=== PATIENT | male | born 1975 ===

== ENCOUNTER 2023-04-16 09:30 | Emergency (ER) | payer MEDICARE, MEDICAID, SELFPAY ==
[2023-04-16] VITALS (10 sets, daily range): BP systolic 112–144; BP diastolic 75–96; PULSE 67–98; RESP 12–19; TEMP 36.4; O2SAT 92–100; BMI 32.8
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
--- NOTE | 2023-04-16 10:08 | ED.GENADULT ---
HPI - General Adult General Chief complaint: Trauma Stated complaint: Jumped off balcony,can't walk pain from waist down Time Seen by Provider: 04/16/23 09:49 Source: patient Mode of arrival: Ambulatory History of Present Illness HPI narrative: 47-year-old gentleman who walks into triage complaining of back pain. Once in the department he is reluctant to provide any details. As best I can tell, he jumped or fell off a ladder that was approximately 12 ft. He reports that this happened sometime last night. He states he landed on his feet and is complaining of right foot left knee left hip and neck pain. He states he did not hit his head. He notes that he did fall forward caught himself with a his hands and is complaining of neck pain. He notes that he did have a broken neck recently. He has no chest pain or abdominal pain. No upper extremity complaints. He is minimally interactive, almost falling asleep during our discussion but denies any medications recreational are otherwise. He declines IV and offers no additional history. When asked directly if this was a suicide attempt he will not answer. He will not answer any other questions regarding circumstances of the incident or medical history Related Data Allergies Allergy/AdvReac Type Severity Reaction Status Date / Time No Known Drug Allergies Allergy Verified 04/16/23 09:57 Review of Systems Review of Systems Narrative: Unobtainable due to patient being unwilling to answer questions Patient History Medical History (Updated 04/16/23 @ 14:43 by Catia Yancey MD) Schizoaffective disorder Opioid use disorder Cervical stenosis of spine Cervical vertebral fracture Hyperlipidemia Hypertension Bipolar 1 disorder Coronary artery disease Social History Smoking Status: Current every day smoker Smoking Status: Current every day smoker tobacco type: cigarettes alcohol intake frequency: 0-2 drinks per day Substance Use Type: marijuana Exam Initial Vital Signs Initial Vital Signs: Vital Signs Temperature 97.5 F L 04/16/23 09:35 Pulse Rate 87 04/16/23 09:35 Respiratory Rate 19 04/16/23 09:35 Blood Pressure 127/75 04/16/23 09:35 Pulse Oximetry 97 04/16/23 09:35 Oxygen Delivery Method Room Air 04/16/23 09:35 General: Overweight, chronically ill-appearing gentleman lying curled on his right side and minimally interactive with exam HEENT: Moist mucous membranes, 2-3 mm minimally reactive pupils, unrestricted extraocular movement Neck: Tender from occipital input to T6 bilateral Respiratory: Lungs are clear to auscultation, no wheezing no rales no rhonchi. Full and symmetrical air movement. No bruising or abrasions. No tenderness with rib manipulation Cardiac: Regular rate and rhythm no murmurs no bruits Abdomen: Soft, nontender, good bowel tones, no flank pain Skin: Warm and dry, no obvious abrasions or contusions Neurologic: He is moving all extremities Extremities: Right lateral ankle is slightly swollen and tender over the calcaneus, left knee with effusion tender and unable to flex beyond 160?, complaints of left hip pain yet passive internal external rotation of the hip are unremarkable. Pelvis and spine: Some minor tenderness with flexion around the left iliac crest. No tenderness along thoracic vertebrae or lumbar vertebra Psych: Uncooperative, flat affect, falling asleep during exam Course Orders Ordered: ED Orders 04/16/23 10:17 CT cervical spine wo con Stat XR ankle RT min 3V Stat XR hip w pel if done LT 2V Stat XR knee LT 3V Stat XR lumbar spine 2-3V Stat 04/16/23 11:23 Consult to [employer] - [employer] Stat 04/16/23 11:32 Urinalysis and Microscopic Stat Urine Drug Screen, Rapid Stat 04/16/23 11:33 Consult to [facility] [place] - [employer] Urgent 04/16/23 11:58 Acetaminophen Stat Complete Blood Count AUTO DIFF Stat Comprehensive Metabolic Panel Stat Ethanol (ETOH) Stat Salicylate Stat TSH w/ Reflex to FT4 Stat Vital Signs Vital signs: Vital Signs - 8 hr 04/16/23 09:35 04/16/23 09:38 04/16/23 09:38 Temperature 97.5 F L Pulse Rate 87 87 Respiratory Rate 19 Blood Pressure 127/75 127/75 Pulse Oximetry 97 97 Oxygen Delivery Method Room Air 04/16/23 10:00 04/16/23 10:00 04/16/23 10:43 Temperature Pulse Rate 82 67 Respiratory Rate Blood Pressure 113/76 Pulse Oximetry 96 98 Oxygen Delivery Method 04/16/23 10:43 04/16/23 11:00 04/16/23 11:00 Temperature Pulse Rate 70 Respiratory Rate Blood Pressure 125/89 119/80 Pulse Oximetry 92 Oxygen Delivery Method 04/16/23 11:30 04/16/23 11:31 04/16/23 11:31 Temperature Pulse Rate 93 H 77 Respiratory Rate Blood Pressure 144/96 H Pulse Oximetry 100 99 Oxygen Delivery Method 04/16/23 13:19 04/16/23 13:20 04/16/23 13:20 Temperature Pulse Rate 75 79 Respiratory Rate Blood Pressure 112/79 Pulse Oximetry 97 98 Oxygen Delivery Method 04/16/23 13:21 Temperature Pulse Rate 98 H Respiratory Rate 12 Blood Pressure 112/79 Pulse Oximetry 98 Oxygen Delivery Method Room Air Medical Decision Making Lab Data 04/16/23 11:58 04/16/23 11:58 Labs: Lab Results 04/16/23 Range/Units 11:58 WBC 13.0 H (4.5-11.0) X10^3/uL RBC 4.56 (4.5-5.9) X10^6/uL Hgb 14.0 (13.5-17.5) g/dL Hct 41.4 (41-53) % MCV 90.8 (80-100) fL MCH 30.8 (26-34) PG MCHC 33.9 (30-36) % RDW 13.9 (11.6-14.8) % Plt Count 277 (150-400) X10^3/uL Neut % (Auto) 64.5 (50-75) % Lymph % (Auto) 27.3 (25-40) % [place] % (Auto) 5.9 (3-14) % Eos % (Auto) 1.4 L (2-4) % Baso % (Auto) 0.9 (0-2) % Neut # (Auto) 8400 H (2080-0652) /uL Lymph # (Auto) 3500 (0046-4496) /uL [place] # (Auto) 800 (0-900) /uL Eos # (Auto) 200 (0-450) /uL Baso # (Auto) 100 (0-100) /uL Sodium 137 (137-145) mmol/L Potassium 4.1 (3.4-5.1) mmol/L Chloride 106 (98-107) mmol/L Carbon Dioxide 28 (22-32) mmol/L BUN 15 (9-20) mg/dL Creatinine 0.84 (0.66-1.25) mg/dL Estimated GFR > 60 (>60) mL/min BUN/Creatinine Ratio 17.9 (6-22) Glucose 93 (70-100) mg/dL Calcium 8.8 (8.4-10.2) mg/dL Total Bilirubin 0.4 (0.2-1.3) mg/dL AST 23 (17-59) IU/L ALT 20 (<50) IU/L Alkaline Phosphatase 102 (38-126) U/L Total Protein 7.7 (6.3-8.2) g/dL Albumin 3.6 (3.5-5.0) g/dL Globulin 4.1 (1.7-4.1) g/dL Albumin/Globulin Ratio 0.9 L (1.0-2.8) TSH 0.50 (0.47-4.68) uIU/mL Salicylates < 1.0 (<20) mg/dL Acetaminophen < 10 (10-30) ug/mL Ethyl Alcohol < 10 ( - 10) mg/dL Imaging Data CT cervical spine: Radiologist's Impression: PROCEDURE: CT CERVICAL SPINE WO CON INDICATIONS: fall from 12 feet TECHNIQUE: Noncontrast 3 mm thick sections acquired from the skull base to the T4 level. Sagittal and coronal reformats were then constructed. For radiation dose reduction, the following was used: automated exposure control, adjustment of mA and/or kV according to patient size. COMPARISON: [facility], CT, CT CERVICAL SPINE WITHOUT CONTRAST, 01/16/2023, 16:54. FINDINGS: Image quality: Excellent. Bones: Present on the previous study was a vertical fracture of the C4 vertebral body in the midline within associated right lamina fracture at that time period since the previous study, there has been significant interval decrease in the C4 vertebral body height with development of a moderate superior endplate compression, as well as development bony sclerosis in the vertebral body. The superior endplate compression with lucency inferior to the superior endplate may have some acuity within it. The vertical fracture line is much less well appreciated consistent with progress in healing. No other vertebral body fractures are identified. There is diffuse cervical spondylitic change. There is multilevel canal stenosis. There is multilevel bony foraminal narrowing. Visualized superior ribs are intact. Soft tissues: Prevertebral soft tissues are normal in thickness. No paravertebral hematomas. No apical pneumothoraces. IMPRESSION: 1. There is been progress in healing of a previous vertical fracture in the C4 vertebral body. 2. Interval development of a moderate superior endplate compression of L4. This compression may have some degree of acuity. 3. No other acute fractures or dislocations. 4. Diffuse spondylitic change. Findings include multilevel canal stenosis and bony foraminal narrowing. Comment: Cervical spine MRI may be helpful to further evaluate the C4 vertebral body. Dictated by: Yong Mcallister M.D. on 04/16/2023 at 10:45 MDM Narrative Medical decision making narrative: CC: Fall off 12 ft ladder Complicating co-morbidities: Patient is noncooperative with any history. He is flat and unengaged to the point of being hostile, declines IV your lab work Data collected from: patient Social determinants of health that may influence the patients condition: Patient reports taking no medications despite medical records indicating multiple medications prescribed including psychiatric medications. Will not comment on his own medical history, social situation current living situation or suicidal intent Medical records reviewed: LIZA report is reviewed with inputs from [facility], [facility] and [facility] all since July of 2022. Notes from [facility] in July of 2022 are reviewed indicate significant psychiatric history including schizophrenia, bipolar disorder with coronary artery disease history of methamphetamine and opioid use, hypertension, hyperlipidemia Differential considered: Suicide attempt, exacerbation of C3 and C4 fractures, new cervical fractures, lumbar fracture, pelvic fracture, left hip fracture, left knee injury, right ankle injury. Exam documented above, pertinent findings include: Concern for acute opioid use as he is nodding off, significant neck pain that is unclear if it is new or old, swollen left knee, swollen right ankle Lab Test results independently reviewed as above. Pertinent findings: CBC is unremarkable Chemistries are unremarkable TSH is unremarkable Salicylate and acetaminophen are not detectable Ethyl alcohol is 0 Independently reviewed EKG: Imaging studies independently reviewed: CT scan of the cervical spine shows healing in prior C4 fracture, interval development of moderate superior endplate compression of C4 this may have some degree of acuity. -films will be forward to to [facility] for neurosurgical consultation as to acuity instability of fracture is noted. He was treated in December at [facility] with these original cervical fractures Lumbar spine x-ray shows no acute compression fractures or other abnormalities X-ray of the left knee does not show any acute bony injury X-ray of the right ankle shows no acute bony injury Hip x-ray does not show hip or pelvic fracture Consultations: Social work. Patient was recently seen at [facility] with mental health evaluation for suicidal ideation. Working on obtaining records. 1:40pm Dr Ladd neurosurg/spine training consultant. Acutely reviewing CT. Recommends spine surg follow up for spinal stenosis. [place] or [place] and wear 24/ as recommended in december 2022, which patient has chosen to not wear. 1:50pm still waiting for urine but medically cleared otherwise at this time 2pm: Social work talked with patient, staying with a friend, gets meds from the ER, denies SI and despite appearing currently significantly impaired secondary to opioid use he denies any recreational drug use. He declines any additional help, use resources from social work. Re-evaluations: 1140 pt agrees to blood and urine Discussion: Discharge Plan Departure Patient Disposition: Home Clinical Impression: Fall Qualifiers: Encounter type: initial encounter Qualified Code(s): W19.XXXA - Unspecified fall, initial encounter Fx cervical vertebra-closed Qualifiers: Encounter type: subsequent encounter Cervical vertebra fracture level: C4 Fracture alignment: nondisplaced Fracture healing: with routine healing Left knee sprain Qualifiers: Encounter type: initial encounter Involved ligament of knee: unspecified ligament Qualified Code(s): S83.92XA - Sprain of unspecified site of left knee, initial encounter Right ankle sprain Qualifiers: Encounter type: initial encounter Involved ligament of ankle: unspecified ligament Qualified Code(s): S93.401A - Sprain of unspecified ligament of right ankle, initial encounter Activity Restrictions/Additional Instructions: Thank you for coming in today We did a CT scan of your neck and I reviewed this study with the spine surgeon at [facility]. Your injury from December is healing but still not healed and his recommendation was to wear hard cervical collar. He also recommended outpatient follow-up with a spine surgeon and noted that you do have a degree of spinal stenosis in your neck that at some point may require surgery. It does not look like you did any new injury with your fall last night We have given you a replacement hard cervical collar for your neck fracture. The spine surgeon's recommendation was to wear it 24 hours a day except when showering. Your left knee is sprained which is why it is swollen. You did not break anything. It is okay to walk on your knee. Your right ankle is brain, also why it is swollen. It is not broken. It is okay to walk on your ankle You spoke with our social workers today and declined any additional help. If you find that you are getting worse or develop any new symptoms, please feel free to return to the emergency department for further evaluation. Referrals: Miscellaneous,Doctor, MD [Primary Care Provider] - Stand Alone Forms: Patient Portal/API
--- NOTE | 2023-04-16 10:17 | DI.RAD.S_ITS ---
PROCEDURE: XR ANKLE RT MIN 3V INDICATIONS: fall, pain TECHNIQUE: 3 views of the ankle were acquired. COMPARISON: None. FINDINGS: Bones: No fractures or dislocations. Ankle mortise is normally aligned. No suspicious bony lesions. Soft tissues: No tibiotalar joint effusion. Achilles tendon appears normal. Extensive plantar calcifications, as well as a plantar calcaneal spur. IMPRESSION: No evidence acute bony abnormality. The presence of extensive plantar calcifications raises the question of chronic changes related to plantar fasciitis. If clinical suspicion and/or symptoms persist, further assessment with repeat plain films, or advanced imaging (e.g., CT, MRI, or bone scan) may be helpful for further assessment. Dictated by: Yong Mcallister M.D. on 04/16/2023 at 11:41 Approved by: Yong Mcallister M.D. on 04/16/2023 at 11:44
--- NOTE | 2023-04-16 10:17 | DI.CT.S_ITS ---
PROCEDURE: CT CERVICAL SPINE WO CON INDICATIONS: fall from 12 feet TECHNIQUE: Noncontrast 3 mm thick sections acquired from the skull base to the T4 level. Sagittal and coronal reformats were then constructed. For radiation dose reduction, the following was used: automated exposure control, adjustment of mA and/or kV according to patient size. COMPARISON: [facility], CT, CT CERVICAL SPINE WITHOUT CONTRAST, 01/16/2023, 16:54. FINDINGS: Image quality: Excellent. Bones: Present on the previous study was a vertical fracture of the C4 vertebral body in the midline within associated right lamina fracture at that time period since the previous study, there has been significant interval decrease in the C4 vertebral body height with development of a moderate superior endplate compression, as well as development bony sclerosis in the vertebral body. The superior endplate compression with lucency inferior to the superior endplate may have some acuity within it. The vertical fracture line is much less well appreciated consistent with progress in healing. No other vertebral body fractures are identified. There is diffuse cervical spondylitic change. There is multilevel canal stenosis. There is multilevel bony foraminal narrowing. Visualized superior ribs are intact. Soft tissues: Prevertebral soft tissues are normal in thickness. No paravertebral hematomas. No apical pneumothoraces. IMPRESSION: 1. There is been progress in healing of a previous vertical fracture in the C4 vertebral body. 2. Interval development of a moderate superior endplate compression of L4. This compression may have some degree of acuity. 3. No other acute fractures or dislocations. 4. Diffuse spondylitic change. Findings include multilevel canal stenosis and bony foraminal narrowing. Comment: Cervical spine MRI may be helpful to further evaluate the C4 vertebral body. Dictated by: Yong Mcallister M.D. on 04/16/2023 at 10:45 Approved by: Yong Mcallister M.D. on 04/16/2023 at 10:53
--- NOTE | 2023-04-16 10:17 | DI.RAD.S_ITS ---
PROCEDURE: XR KNEE LT 3V INDICATIONS: fall, pain TECHNIQUE: 3 views of the knee were acquired. COMPARISON: None. FINDINGS: Bones: No fractures or dislocations. No suspicious bony lesions. Soft tissues: No joint effusion. No suspicious soft tissue calcifications. IMPRESSION: No evidence acute bony abnormality. If clinical suspicion and/or symptoms persist, further assessment with repeat plain films, or advanced imaging (e.g., CT, MRI, or bone scan) may be helpful for further assessment. Dictated by: Yong Mcallister M.D. on 04/16/2023 at 11:44 Approved by: Yong Mcallisetr M.D. on 04/16/2023 at 11:45
--- NOTE | 2023-04-16 10:17 | DI.RAD.S_ITS ---
PROCEDURE: XR LUMBAR SPINE 2-3V INDICATIONS: fall, pain TECHNIQUE: 3 views of the lumbar spine were acquired. COMPARISON: None. FINDINGS: Bones: 5 [id number] vertebrae are present. There is normal bony alignment. No vertebral body compression fractures. No suspicious bony lesions. Multilevel degenerative disc space loss. Bulky multilevel facet arthropathy. Suspect canal stenosis. Soft tissues: Overlying bowel gas pattern is normal. No suspicious soft tissue calcifications. IMPRESSION: 1. No acute bony abnormality. 2. Extensive degenerative change. Suspect possible canal stenosis. Comment: Nonemergent lumbar spine MRI may be helpful. Dictated by: Yong Mcallister M.D. on 04/16/2023 at 11:26 Approved by: Yong Mcallister M.D. on 04/16/2023 at 11:33
--- NOTE | 2023-04-16 10:17 | DI.RAD.S_ITS ---
PROCEDURE: XR HIP W PEL IF DONE LT 2V INDICATIONS: fall, hip pain TECHNIQUE: AP pelvis with lateral view(s) of the left hip(s). COMPARISON: None. FINDINGS: Bones: No fractures or dislocations. Pelvic ring appears intact. No suspicious bony lesions. Soft tissues: The visualized bowel gas pattern is normal. No suspicious soft tissue calcifications. IMPRESSION: No evidence acute bony abnormality. If clinical suspicion and/or symptoms persist, further assessment with repeat plain films, or advanced imaging (e.g., CT, MRI, or bone scan) may be helpful for further assessment. Dictated by: Yong Mcallister M.D. on 04/16/2023 at 11:40 Approved by: Yong Mcallister M.D. on 04/16/2023 at 11:41
[2023-04-16 12:03] LABS: Add Manual Diff / Slide Review NO; Basophils Absolute Auto 100 /uL (0-100); Basophils Percent Auto 0.9 % (0-2); Eosinophils Absolute Auto 200 /uL (0-450); Eosinophils Percent Auto 1.4 % (2-4); Hematocrit 41.4 % (41-53); Lymphocytes Absolute Auto 3500 /uL (1100-4500); Lymphocytes Percent Auto 27.3 % (25-40); Mean Corpuscular HGB Conc 33.9 % (30-36); Mean Corpuscular Hemoglobin 30.8 PG (26-34); Mean Corpuscular Volume 90.8 fL (80-100); Monocytes Absolute Auto 800 /uL (0-900); Monocytes Percent Auto 5.9 % (3-14); Neutrophils Absolute Auto 8400 /uL (1500-7000); Neutrophils Percent Auto 64.5 % (50-75); Platelet Count 277 X10^3/uL (150-400); Red Blood Cell Count 4.56 X10^6/uL (4.5-5.9); Red Cell Distribution Width 13.9 % (11.6-14.8)
[2023-04-16 12:14] LABS: Acetaminophen < 10 ug/mL (10-30); Alanine Aminotransferase 20 IU/L (<50); Albumin 3.6 g/dL (3.5-5.0); Albumin Globulin Ratio 0.9 (1.0-2.8); Alkaline Phosphatase 102 U/L (38-126); Aspartate Aminotransferase 23 IU/L (17-59); BUN Creatinine Ratio 17.9 (6-22); Bilirubin Total 0.4 mg/dL (0.2-1.3); Blood Urea Nitrogen 15 mg/dL (9-20); Calcium 8.8 mg/dL (8.4-10.2); Carbon Dioxide 28 mmol/L (22-32); Chloride 106 mmol/L (98-107); Estimated Glomerular Filt Rate > 60 mL/min (>60); Ethanol (ETOH) < 10 mg/dL; Globulin 4.1 g/dL (1.7-4.1); Glucose 93 mg/dL (70-100); HEMOLYSIS < 15 (0-50); Potassium 4.1 mmol/L (3.4-5.1); Salicylate < 1.0 mg/dL (<20); Sodium 137 mmol/L (137-145); Total Protein 7.7 g/dL (6.3-8.2)
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
--- NOTE | 2023-04-16 14:25 | PC.NURSE ---
urinal placed on bedside for pt to use.
== END 2023-04-16 15:02 | disposition home or self-care (01) ==
PROVIDERS: Emergency Provider Emergency Medicine
DX: S83.92XA Sprain of unspecified site of left knee, initial encounter (principal); S93.401A Sprain of unspecified ligament of right ankle, initial encounter; S12.9XXD Fracture of neck, unspecified, subsequent encounter; M25.552 Pain in left hip; M25.562 Pain in left knee; M54.50 Low back pain, unspecified; W11.XXXA Fall on and from ladder, initial encounter
CPT/HCPCS: 36415; 72100; 72125; 73502; 73562; 73610; 80053; 80320; 80329; 84443; 85025; 99284; G0480

== ENCOUNTER 2023-05-03 11:53 | Emergency (ER) | payer MEDICARE, MEDICAID, SELFPAY ==
[2023-05-03 11:57] VITALS: BP 137/82; PULSE 86; RESP 18; TEMP 36.7; O2SAT 99; BMI 34.7
[2023-05-03 12:38] LABS: Add Manual Diff / Slide Review NO; Basophils Absolute Auto 100 /uL (0-100); Basophils Percent Auto 0.7 % (0-2); Eosinophils Absolute Auto 200 /uL (0-450); Eosinophils Percent Auto 1.6 % (2-4); Hematocrit 40.9 % (41-53); Lymphocytes Absolute Auto 3200 /uL (1100-4500); Lymphocytes Percent Auto 33.1 % (25-40); Mean Corpuscular HGB Conc 34.2 % (30-36); Mean Corpuscular Hemoglobin 31.2 PG (26-34); Mean Corpuscular Volume 91.1 fL (80-100); Monocytes Absolute Auto 500 /uL (0-900); Monocytes Percent Auto 5.5 % (3-14); Neutrophils Absolute Auto 5700 /uL (1500-7000); Neutrophils Percent Auto 59.1 % (50-75); Platelet Count 209 X10^3/uL (150-400); Red Blood Cell Count 4.49 X10^6/uL (4.5-5.9); Red Cell Distribution Width 14.5 % (11.6-14.8); White Blood Cell Count 9.7 X10^3/uL (4.5-11.0)
--- NOTE | 2023-05-03 12:47 | ED.PSYCH ---
HPI - Psych <Jhonatan Acosta PA-C - Last Filed: 05/03/23 14:53> General Chief Complaint: Psychiatric Symptoms Stated Complaint: wants to hurt everybody per pt Time Seen by Provider: 05/03/23 12:17 Source: patient Mode of arrival: Ambulatory History of Present Illness HPI Narrative: This is a 47-year-old male presents emergency department due to thoughts of hurting others. Very minimally interactive during exam with a very small amount of history given. States he wants to hurt ?everyone?. Denies any SI. Denies any auditory or visual hallucinations. Denies any physical pain. States he was like to be placed inpatient smoking point. Based on triage note it seems as if his children were taken away from his mother due to CPS and he thinks he may harm other people. Related Data Allergies Allergy/AdvReac Type Severity Reaction Status Date / Time No Known Drug Allergies Allergy Verified 05/03/23 12:05 Review of Systems <Jhonatan Acosta PA-C - Last Filed: 05/03/23 14:53> Review of Systems Narrative: GENERAL: Denies chills, fatigue, malaise, fever, sweats. HEENT: Denies sinus pain, ear pain, sore throat, difficulty swallowing, dizziness. RESPIRATORY: Denies dyspnea, cough, wheezing, hemoptysis, sputum. CARDIOVASCULAR: Denies chest pain, palpitations, orthopnea, edema, GASTROINTESTINAL: Denies nausea, vomiting, abdominal pain, diarrhea, constipation, melena. : Denies dysuria, frequency, incontinence, hematuria, urinary retention. MUSCULOSKELETAL: denies weakness, joint pain, or bony pain SKIN: Denies rash, skin lesions, or other NEUROLOGIC: Denies weakness, headache, numbness, change in speech, confusion, seizures, incoordination. PSYCHIATRIC: No concerning psychosocial issues. 12 point review of systems is negative except for those stated above Patient History <Jhonatan Acosta PA-C - Last Filed: 05/03/23 14:53> Medical History (Updated 05/03/23 @ 14:53 by Jhonatan Acosta PA-C) Schizoaffective disorder Opioid use disorder Cervical stenosis of spine Cervical vertebral fracture Hyperlipidemia Hypertension Bipolar 1 disorder Coronary artery disease Social History Smoking Status: Current every day smoker Smoking Status: Current every day smoker tobacco type: cigarettes alcohol intake frequency: 0-2 drinks per day Substance Use Type: marijuana and methamphetamine Exam <Jhonatan Acosta PA-C - Last Filed: 05/03/23 14:53> Narrative Exam Narrative: GENERAL: Well-developed patient, in mild distress. HEAD: Atraumatic. Normocephalic. EYES: Pupils equal round and reactive. Extraocular motions intact. No scleral icterus. No injection or drainage. ENT: Nose without bleeding, purulent drainage. Throat without erythema, tonsillar hypertrophy or exudate. Airway patent. NECK: Trachea midline. Non tender EXTREMITIES: No edema or joint tenderness. NEURO: AOx3. SKIN: No rash or erythema of visible areas Initial Vital Signs Initial Vital Signs: Vital Signs Temperature 98.0 F 05/03/23 11:57 Pulse Rate 86 05/03/23 11:57 Respiratory Rate 18 05/03/23 11:57 Blood Pressure 137/82 05/03/23 11:57 Pulse Oximetry 99 05/03/23 11:57 Oxygen Delivery Method Room Air 05/03/23 11:57 <Jocelynn Baird DO - Last Filed: 05/04/23 07:10> Initial Vital Signs Initial Vital Signs: Vital Signs Temperature 98.0 F 05/03/23 11:57 Pulse Rate 86 05/03/23 11:57 Respiratory Rate 18 05/03/23 11:57 Blood Pressure 137/82 05/03/23 11:57 Pulse Oximetry 99 05/03/23 11:57 Oxygen Delivery Method Room Air 05/03/23 11:57 Course <Jhonatan Acosta PA-C - Last Filed: 05/03/23 14:53> Orders Ordered: ED Orders 05/03/23 12:09 Urine Drug Screen, Rapid Stat 05/03/23 12:10 Consult to CONSULTING MARINE ENGINEER - [employer] Stat 05/03/23 12:30 Acetaminophen Stat Complete Blood Count AUTO DIFF Stat Comprehensive Metabolic Panel Stat Ethanol (ETOH) Stat Free T4, Direct Thyroxine Stat Salicylate Stat Thyroid Stimulating Hormone Stat 05/03/23 12:39 Covid-19 + FLU A/B + RSV - PCR Stat Vital Signs Vital signs: Vital Signs - 8 hr 05/03/23 11:57 Temperature 98.0 F Pulse Rate 86 Respiratory Rate 18 Blood Pressure 137/82 Pulse Oximetry 99 Oxygen Delivery Method Room Air <Jocelynn Baird DO - Last Filed: 05/04/23 07:10> Orders Ordered: ED Orders 05/03/23 12:09 Urine Drug Screen, Rapid Stat 05/03/23 12:10 Consult to CONSULTING MARINE ENGINEER - [employer] Stat 05/03/23 12:30 Acetaminophen Stat Complete Blood Count AUTO DIFF Stat Comprehensive Metabolic Panel Stat Ethanol (ETOH) Stat Free T4, Direct Thyroxine Stat Salicylate Stat Thyroid Stimulating Hormone Stat 05/03/23 12:39 Covid-19 + FLU A/B + RSV - PCR Stat Vital Signs Vital signs: Vital Signs - 8 hr 05/03/23 11:57 Temperature 98.0 F Pulse Rate 86 Respiratory Rate 18 Blood Pressure 137/82 Pulse Oximetry 99 Oxygen Delivery Method Room Air MDM - Psych <Jhonatan Acosta PA-C - Last Filed: 05/03/23 14:53> Lab Data 05/03/23 12:30 05/03/23 12:30 Labs: Lab Results 05/03/23 05/03/23 05/03/23 Range/Units 12:30 12:42 13:46 WBC 9.7 (4.5-11.0) X10^3/uL RBC 4.49 L (4.5-5.9) X10^6/uL Hgb 14.0 (13.5-17.5) g/dL Hct 40.9 L (41-53) % MCV 91.1 (80-100) fL MCH 31.2 (26-34) PG MCHC 34.2 (30-36) % RDW 14.5 (11.6-14.8) % Plt Count 209 (150-400) X10^3/uL Neut % (Auto) 59.1 (50-75) % Lymph % (Auto) 33.1 (25-40) % [place] % (Auto) 5.5 (3-14) % Eos % (Auto) 1.6 L (2-4) % Baso % (Auto) 0.7 (0-2) % Neut # (Auto) 5700 (8255-6363) /uL Lymph # (Auto) 3200 (2948-7951) /uL [place] # (Auto) 500 (0-900) /uL Eos # (Auto) 200 (0-450) /uL Baso # (Auto) 100 (0-100) /uL Sodium 136 L (137-145) mmol/L Potassium 4.1 (3.4-5.1) mmol/L Chloride 104 (98-107) mmol/L Carbon Dioxide 29 (22-32) mmol/L BUN 15 (9-20) mg/dL Creatinine 0.74 (0.66-1.25) mg/dL Estimated GFR > 60 (>60) mL/min BUN/Creatinine Ratio 20.3 (6-22) Glucose 112 H (70-100) mg/dL Calcium 8.6 (8.4-10.2) mg/dL Total Bilirubin 0.6 (0.2-1.3) mg/dL AST 20 (17-59) IU/L ALT 20 (<50) IU/L Alkaline Phosphatase 101 (38-126) U/L Total Protein 7.3 (6.3-8.2) g/dL Albumin 3.6 (3.5-5.0) g/dL Globulin 3.7 (1.7-4.1) g/dL Albumin/Globulin Ratio 1.0 (1.0-2.8) TSH 0.404 L (0.47-4.68) uIU/mL Free T4 1.02 (0.78-2.19) ng/dL Salicylates < 1.0 (<20) mg/dL U Opiates 300ng/mL cut Negative (Negative) Ur Oxycodone Screen Negative (Negative) Urine Methadone Screen Negative (Negative) Acetaminophen < 10 (10-30) ug/mL Ur Barbiturates Screen Negative (Negative) U Tricyclic Antidepress Negative (Negative) Ur Phencyclidine Scrn Negative (Negative) Ur Amphetamines Screen Negative (Negative) U Methamphetamines Scrn Negative (Negative) Ur MDMA Scrn (Ecstasy) Negative (Negative) U Benzodiazepines Scrn Negative (Negative) Urine Cocaine Screen Negative (Negative) U Marijuana (THC) Screen Positive H (Negative) Urine pH Normal (Normal) Urine Specific [place] Normal (Normal) Ethyl Alcohol < 10 ( - 10) mg/dL Ur Creatinine Normal (Normal) SARS-CoV-2 (PCR) Negative (Negative) Influenza A (RT-PCR) Flu a negative (NEGATIVE) Influenza B (RT-PCR) Flu b negative (NEGATIVE) RSV (PCR) Negative (Negative) Urine Dip Bedside Urine Glucose Negative Bedside Urine Bilirubin - Negative Bedside Urine Ketone - Negative Urine Specific [place] 1.015 Bedside Urine Occult Blood - Negative Bedside Urine pH 6.0 Bedside Urine Protein - Negative Bedside Urine Urobilinogen - Negative Bedside Urine Nitrite - Negative Bedside Urine Leukocytes - Negative Esterase MDM Narrative Medical decision making narrative: ED course: This is a 47-year-old male presents to the emergency department requesting inpatient stay as he states that he has intent to harm other people. Denies any SI. Denies any auditory or visual hallucinations. Minimally interactive during medical interview. Poor historian. Patient does not present with any physical pain to address and lab work showed no concerning abnormalities. Medically clear for inpatient stay. Medical social work contacted the inpatient facility [facility] confirmed they have beds. Patient will be transferred to [facility]. CC: Intent to harm other people Complicating co-morbidities: Bipolar 1 disorder, schizoaffective disorder, opiate use disorder Data collected from: Previous notes Medical records reviewed: Patient was seen here about 3 weeks ago due to jumping off a balcony and being unable to walk from the waist down. Fell from approximately 12 ft. Seems to be somewhat of a minimally interactive and unreliable historian. History of schizoaffective disorder, opiate use disorder, cervical vertebral fracture, hypertension, bipolar 1 disorder, coronary artery disease. Declined IV lab work refused to comment and provide much of the history during his previous visit. Was recommended to have spine surgery follow up for spinal stenosis. Patient was eventually discharged home. Was given a hard C-collar. Declined any further help from social work. Differential considered, but not limited to: Drug use Exam documented above, pertinent findings include: Minimally interactive although no gross abnormal findings Lab Test results independently reviewed as above. Pertinent findings: CBC within normal limits, CMP showed very mild hyponatremia but no significant abnormalities. Salicylates same level normal. Acetaminophen level normal. Ethanol limits within normal limits. COVID negative. UA showed no evidence of infection or blood. Urine drug screen came back positive only for marijuana use. TSH slightly abnormal though free T4 within normal limits. Imaging studies independently reviewed: None obtained Scores Used: None MIPS Elements: None Consultations: None Treatments: None Re-evaluations: None Discussion: Discussed plan with the patient was comfortable with the plan Diagnosis: Cleared for inpatient stay Disposition: see below, along with detailed discharge instructions that have been reviewed with patient as well as indications for ED re-evaluation and additional outpatient follow up <Jocelynn Baird, DO - Last Filed: 05/04/23 07:10> Lab Data Labs: Lab Results 05/03/23 05/03/23 05/03/23 Range/Units 12:30 12:42 13:46 WBC 9.7 (4.5-11.0) X10^3/uL RBC 4.49 L (4.5-5.9) X10^6/uL Hgb 14.0 (13.5-17.5) g/dL Hct 40.9 L (41-53) % MCV 91.1 (80-100) fL MCH 31.2 (26-34) PG MCHC 34.2 (30-36) % RDW 14.5 (11.6-14.8) % Plt Count 209 (150-400) X10^3/uL Neut % (Auto) 59.1 (50-75) % Lymph % (Auto) 33.1 (25-40) % [place] % (Auto) 5.5 (3-14) % Eos % (Auto) 1.6 L (2-4) % Baso % (Auto) 0.7 (0-2) % Neut # (Auto) 5700 (9004-0524) /uL Lymph # (Auto) 3200 (9252-3838) /uL [place] # (Auto) 500 (0-900) /uL Eos # (Auto) 200 (0-450) /uL Baso # (Auto) 100 (0-100) /uL Sodium 136 L (137-145) mmol/L Potassium 4.1 (3.4-5.1) mmol/L Chloride 104 (98-107) mmol/L Carbon Dioxide 29 (22-32) mmol/L BUN 15 (9-20) mg/dL Creatinine 0.74 (0.66-1.25) mg/dL Estimated GFR > 60 (>60) mL/min BUN/Creatinine Ratio 20.3 (6-22) Glucose 112 H (70-100) mg/dL Calcium 8.6 (8.4-10.2) mg/dL Total Bilirubin 0.6 (0.2-1.3) mg/dL AST 20 (17-59) IU/L ALT 20 (<50) IU/L Alkaline Phosphatase 101 (38-126) U/L Total Protein 7.3 (6.3-8.2) g/dL Albumin 3.6 (3.5-5.0) g/dL Globulin 3.7 (1.7-4.1) g/dL Albumin/Globulin Ratio 1.0 (1.0-2.8) TSH 0.404 L (0.47-4.68) uIU/mL Free T4 1.02 (0.78-2.19) ng/dL Salicylates < 1.0 (<20) mg/dL U Opiates 300ng/mL cut Negative (Negative) Ur Oxycodone Screen Negative (Negative) Urine Methadone Screen Negative (Negative) Acetaminophen < 10 (10-30) ug/mL Ur Barbiturates Screen Negative (Negative) U Tricyclic Antidepress Negative (Negative) Ur Phencyclidine Scrn Negative (Negative) Ur Amphetamines Screen Negative (Negative) U Methamphetamines Scrn Negative (Negative) Ur MDMA Scrn (Ecstasy) Negative (Negative) U Benzodiazepines Scrn Negative (Negative) Urine Cocaine Screen Negative (Negative) U Marijuana (THC) Screen Positive H (Negative) Urine pH Normal (Normal) Urine Specific [place] Normal (Normal) Ethyl Alcohol < 10 ( - 10) mg/dL Ur Creatinine Normal (Normal) SARS-CoV-2 (PCR) Negative (Negative) Influenza A (RT-PCR) Flu a negative (NEGATIVE) Influenza B (RT-PCR) Flu b negative (NEGATIVE) RSV (PCR) Negative (Negative) Urine Dip Bedside Urine Glucose Negative Bedside Urine Bilirubin - Negative Bedside Urine Ketone - Negative Urine Specific [place] 1.015 Bedside Urine Occult Blood - Negative Bedside Urine pH 6.0 Bedside Urine Protein - Negative Bedside Urine Urobilinogen - Negative Bedside Urine Nitrite - Negative Bedside Urine Leukocytes - Negative Esterase Discharge Plan Departure Patient Disposition: Xfer Psychiatric Hosp Clinical Impression: At risk for danger to others Activity Restrictions/Additional Instructions: Thank you for coming to the [facility] Emergency Department today. You are medically cleared to be transferred to [facility]. Please return to the emergency department if you develop any suicidal ideation, homicidal ideation, or any other concerning signs or symptoms. I hope you feel better soon. Please follow up with your primary care provider within a week if your symptoms continue. If you do not have a primary care provider please contact the [facility] Resource line at [phone]. They will ask some questions about your medical history and help you get set up with a provider in the community. Referrals: Miscellaneous,Doctor, [Primary Care Provider] - ED Sign-out <Jocelynn Baird DO - Last Filed: 05/04/23 07:10> Cosign ED Attending Bradley Attestation: I was available for consultation.
[2023-05-03 12:53] LABS: Acetaminophen < 10 ug/mL (10-30); Alanine Aminotransferase 20 IU/L (<50); Albumin 3.6 g/dL (3.5-5.0); Alkaline Phosphatase 101 U/L (38-126); Aspartate Aminotransferase 20 IU/L (17-59); BUN Creatinine Ratio 20.3 (6-22); Bilirubin Total 0.6 mg/dL (0.2-1.3); Blood Urea Nitrogen 15 mg/dL (9-20); Calcium 8.6 mg/dL (8.4-10.2); Carbon Dioxide 29 mmol/L (22-32); Chloride 104 mmol/L (98-107); Estimated Glomerular Filt Rate > 60 mL/min (>60); Ethanol (ETOH) < 10 mg/dL; Globulin 3.7 g/dL (1.7-4.1); Glucose 112 mg/dL (70-100); HEMOLYSIS < 15 (0-50); Potassium 4.1 mmol/L (3.4-5.1); Salicylate < 1.0 mg/dL (<20); Sodium 136 mmol/L (137-145); Total Protein 7.3 g/dL (6.3-8.2)
[2023-05-03 13:32] LABS: COVID-19 CEPHEID 4-PLEX PCR Negative (Negative); Influenza A - CEPHEID Flu A NEGATIVE (NEGATIVE); Influenza B - CEPHEID Flu B NEGATIVE (NEGATIVE); Respiratory Syncytial Virus Negative (Negative)
[2023-05-03 13:42] LABS: Free T4, Direct Thyroxine 1.02 ng/dL (0.78-2.19)
[2023-05-03 13:56] LABS: Thyroid Stimulating Hormone 0.404 uIU/mL (0.47-4.68)
[2023-05-03 14:02] LABS: UR Morphine/Opiate cutoff 300 Negative (Negative); Ur Creatinine Normal (Normal); Ur Specific Gravity Normal (Normal); Urine Amphetamines Negative (Negative); Urine Barbiturates Negative (Negative); Urine Benzodiazepines Negative (Negative); Urine Cocaine Negative (Negative); Urine MDMA Negative (Negative); Urine Methadone Negative (Negative); Urine Methamphetamines Negative (Negative); Urine Oxycodone Negative (Negative); Urine Phencyclidine Negative (Negative); Urine Tetrahydrocannabinol Positive (Negative); Urine Tricyclic Antidepressant Negative (Negative); Urine pH Normal (Normal)
--- NOTE | 2023-05-03 15:07 | CM.SWNOTE ---
ED DYNAMOMETER MECHANIC Assessment DYNAMOMETER MECHANIC - Insurance Checker Assessment DYNAMOMETER MECHANIC/Insurance Checker Assessment Time Spent with Patient Start date 05/03/23 Visit Start Time 14:35 End date 05/03/23 Visit End Time 14:48 Total time Care Management spent on 13 minutes patient visit-in minutes Mental Health Screening Include Onset, Duration, Intensity Presenting Problem Patient presents to ED due to concern for thoughts of HI. Patient endorses he is hearing voices saying Don't kill them, don't kill them. Patient endorses that these thoughts and voices started recently after he found out that his children were taken out of his custody recently by CPS. Patient states he presents to ED to seek inpatient hospitalization, patient states he knows he is going to need evaluations and to seek treatment. Precipitating Event(s) Patient states he was at [facility] last month, patient has hx of SI. Patient presents as concerned that his children are no longer in his custody and is seeking help to work towards reunification. Patient Strengths Patient is seeking help. Current Behavioral Health Provider(s) Patient states his prescriber Include Facility, Provider, Ph. # is at [facility] and he has been prescribed Depakote, Risperadone, Seroquil and Prozac. Psych. Hx Mental Health and Chemical Patient has hx of SI, HI, Dependency Schizoaffective Disorder, and Bipolar 1 Disorder. Patient endorses hx of Methamphetamine use and states his last use was 2 months ago , patient endorses hx of Marijuana use and patient is positive for THC upon toxicology screen. Family Hx of Behavioral Abuse Patient reports recent concern for his children being taken from his and their mother's custody Psychiatric Hospitalizations (date(s)/ Patient endorses he was at location) [facility] last month and endorses hx at [facility] [employer] Psychosocial information & Support Patient is 47 y/o male who Systems states he is currently staying at [facility] nursing home across the street. Patient denies current supports. School/Work Unemployed Legal Concerns Legal Matters - Outstanding Issues Patient endorses pending charges for disorderly conduct in a court room, DV assault 3, singh theft and probation violation. Patient states he will return to [facility] in January 2023 Mental Status Orientation (Person/Place/Time) A/Ox4 Stated Mood I want to get treatment Affect (Congruent with Mood?) flat, congruent with mood Thought Content - Specify/Describe Patient endorses he is hearing Obsessions, Delusions, Hallucinations voices telling him don't kill them, don't kill them. Patient endorses concern for paranoia that someone is out to get him and concern that someone will set him off. Patient denies visual hallucinations. Thought Processes (Gloffbo-Kcxzmjoe-Cqjm goal directed Gyqvnkok-Yafsnjvu-Exslpoxqur- Etgyltajdqrrsb-Kvdaldg-Xaywxcoecnoo- Thought Blocking) Speech (Gcfgpu-Ural-Jdpcnuo-Rapid-Soft- soft Loud-Pressured) Motor (Scbjym-Covgtupaq-Yjua-Other) normal, patient lays down while speaking Insight (Kdft-Kivo-Uqrw/Limited) fair Judgement (Tkoa-Fejq-Sshg/Limited) fair Impulse Control (Adequate-Impaired) adequate Memory (Ggrqdfeco-Hpmgfu-Sckjcn, intact, not formally assessed Impaired-Intact) Concentration (Intact-Impaired) intact Attention (Intact-Impaired) intact Behavior (Appropriate-Inappropriate) appropriate Additional Comment Patient presents as calm, communicative and cooperative Risk Assessment Suicidal Ideation (Plan) No Homicidal Ideation (Plan) No Comment Patient denies current SI, patient endorses hx of SI, patient endorses hx of suicide attempt when he was younger when he attempted to hang self . Patient endorses concern for HI but denies current plan. Patient endorses concern that someone will set him off and he feels like he wants to hurt everyone because his kids were taken away. Patient denies intent to act on HI and denies current plan. When asked about following rules and guidelines at hospital, patient agrees to not harm any patients or staff . Patient endorses he wants to go to hospital and will follow rules and guidelines. Intervention Intervention DYNAMOMETER MECHANIC enters room to meet with patient. Patient endorses concern for HI and auditory hallucinations . Patient presents to ED seeking treatment as he wants to seek help and address his mental health issues. There is concern about patient 's access to medication but patient states he takes medication as prescribed. It is the opinion of this DYNAMOMETER MECHANIC that patient would benefit from and be appropriate for voluntary inpatient for crisis stabilization, medication management and safety. DYNAMOMETER MECHANIC to review this with ED provider. Plan RA Plan DYNAMOMETER MECHANIC to seek bed upon medical clearance. ELVIS CagleSW
[2023-05-03 15:58] VITALS: BP 101/57; PULSE 68; RESP 18; TEMP 36.8; O2SAT 95
--- NOTE | 2023-05-03 16:50 | CM.SWNOTE ---
ED MAMMALOGIST Note MAMMALOGIST calls [facility], it is reported that they can review patient. MAMMALOGIST faxes clinicals for review. [facility] accepts patient for ETA at 1930, accepting provider is KIT Marcos. Khoa- Sagrario RN-RN Ph. # [phone]. MAMMALOGIST calls [facility] and schedules transport for [address] bean picker machine operator. MAMMALOGIST reviews this with patient who indicates agreement and understanding. Plan: patient to transport to [facility] via BLS this evening for voluntary inpatient. Nicolle Green, SCHEDULE PLANNING MANAGER
[2023-05-03 17:48] VITALS: BP 119/65; PULSE 60; RESP 16; TEMP 36.9; O2SAT 97
--- NOTE | 2023-05-03 18:18 | PC.NURSE ---
This RN spoke with Cynthia for nurse to nurse report on [address] [facility] ([phone]).
[2023-05-03 18:50] VITALS: BP 112/59; PULSE 69; RESP 18; TEMP 36.8; O2SAT 98
== END 2023-05-03 18:57 ==
PROVIDERS: Emergency Medicine; Emergency Provider Physician Assistant Medical
DX: R44.3 Hallucinations, unspecified (principal); Z20.822 Contact with and (suspected) exposure to COVID-19
CPT/HCPCS: 0241U; 36415; 80053; 80305; 80320; 80329; 81003; 84439; 84443; 85025; 99284; G0480

== ENCOUNTER 2023-05-19 15:37 | Emergency (ER) | payer MEDICARE, MEDICAID, SELFPAY ==
[2023-05-19 15:39] VITALS: BP 111/57; PULSE 111; RESP 18; TEMP 36.9; O2SAT 95; BMI 34.7
--- NOTE | 2023-05-19 16:20 | PC.NURSE ---
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 His left leg pain is intense from a fall that he sustained a while ago. He had x-rays when it happened. He complains of 7/10 pain and is not able bear full weight. He states that he needs to refill hi risperadone, prozac, and depakote. He needs information for a new PCP here.
--- NOTE | 2023-05-19 17:31 | ED.LOWEXIN ---
HPI - Extremity Injury (Lower) General Chief Complaint: Extremity Injury, Lower Stated Complaint: lt knee boil Time Seen by Provider: 05/19/23 16:02 Source: patient Mode of arrival: Ambulatory History of Present Illness HPI Narrative: Patient 47-year-old male history schizoaffective disorder here for variety of complaints. He has an abscess on his left anterior trunk. Reports it has been there for about 4-5 days getting bigger more painful more erythematous. He does not have any sort of fever. This is happened to before. Also complaining of some left knee pain he fell off a balcony in March he had a negative left knee x-ray at that time. He reports that it is still quite painful. He denies any new injury to it. Also wants all of his psych meds refilled Currently denies any suicidal or homicidal ideations he was hospitalized a couple weeks ago for mental health Related Data Previous Rx's Medication Instructions Recorded divalproex 500 mg tablet,delayed 500 mg PO BEDTIME #60 tabs 05/19/23 release (Depakote) doxycycline hyclate 100 mg capsule 100 mg PO BID #20 caps 05/19/23 fluoxetine 40 mg capsule (Prozac) 40 mg PO DAILY #60 caps 05/19/23 risperidone 2 mg tablet 2 mg PO BEDTIME #60 tabs 05/19/23 Allergies Allergy/AdvReac Type Severity Reaction Status Date / Time No Known Drug Allergies Allergy Verified 05/03/23 12:05 Patient History Medical History (Updated 05/19/23 @ 17:48 by Jocelynn Baird DO) Schizoaffective disorder Opioid use disorder Cervical stenosis of spine Cervical vertebral fracture Hyperlipidemia Hypertension Bipolar 1 disorder Coronary artery disease Social History Smoking Status: Current every day smoker Smoking Status: Current every day smoker tobacco type: cigarettes alcohol intake frequency: 0-2 drinks per day Substance Use Type: marijuana and methamphetamine Exam Initial Vital Signs Initial Vital Signs: Vital Signs Temperature 98.4 F 05/19/23 15:39 Pulse Rate 111 H 05/19/23 15:39 Respiratory Rate 18 05/19/23 15:39 Blood Pressure 111/57 L 05/19/23 15:39 Pulse Oximetry 95 05/19/23 15:39 Oxygen Delivery Method Room Air 05/19/23 15:39 GENERAL: Alert pleasant 47-year-old male CARDIOVASCULAR: peripheral pulses in tact, cap refill <2 sec RESPIRATORY: No respiratory distress, speaks in full sentences without difficulty EXTREMITIES: Normal range of motion, no clubbing or edema. Neurovascularly intact Left knee is stable no erythema no low laxity no significant effusion NEUROLOGICAL: Cranial nerves II through XII grossly intact. Normal gait and speech. SKIN: Left sided abscess 3 cm x 2 cm with surrounding erythema Procedures Abscess I/D I&D #1: Site: chest Side (if applicable): left Local Anesthetic: lidocaine 1% and with epi Amount of anesthesia used (mL): 3 Technique: incised with #11 blade Amount of fluid expressed (mL): 3 Course Orders Ordered: ED Orders 05/19/23 17:30 Wound Culture and Gram Stain Stat Discontinued Medications Doxycycline Hyclate (Doxycycline Hyclate 100 Mg Tablet) 100 mg PO NOW ONE Stop: 05/19/23 17:45 Last Admin: 05/19/23 17:58 Dose: 100 mg Vital Signs Vital signs: Vital Signs - 8 hr 05/19/23 15:39 Temperature 98.4 F Pulse Rate 111 H Respiratory Rate 18 Blood Pressure 111/57 L Pulse Oximetry 95 Oxygen Delivery Method Room Air MDM - Extremity Injury (Lower) MDM Narrative Medical decision making narrative: Patient 47-year-old male history of schizoaffective disorder who presents today with variety of complaint. He has an obvious abscess on the left side which is easily drained fluid expressed and culture sent. No sign of sepsis overall appears well and nontoxic. Given 1st dose of doxycycline and prescription sent. No interaction of antibiotic with medications. Medications have been refilled Still having knee pain for weeks after injury. No obvious effusion or laxity but do recommend outpatient MRI. He is given a knee brace here in the ED. No need for any sort of new imaging at this time. Discharge Plan Departure Patient Disposition: Home Clinical Impression: Abscess of skin, Left knee sprain, Medication refill Instructions: DI for Incision and Drainage of a Skin Abscess Activity Restrictions/Additional Instructions: *You have been diagnosed with skin abscess *What to do: At this time continue warm compresses keep area clean and dry with soap and water continue to monitor. I do recommend that you follow-up with orthopedics for your primary care provider. You will likely need an MRI of your left knee. It is not emergent today and can be arranged as an outpatient. *Continue to take medications as directed Doxycycline 100 mg twice a day for 7 days Depakote 500 mg at night Risperidone 2 mg at night Prozac 40 mg daily *Follow up with your primary care provider in 2-3 days or call [phone] *Return to ER if you should have increasing redness swelling pain fever or any new, worsening or concerning symptoms Prescriptions: New doxycycline hyclate 100 mg capsule 100 mg PO BID Qty: 20 0RF divalproex [Depakote] 500 mg tablet,delayed release (DR/EC) 500 mg PO BEDTIME Qty: 60 0RF fluoxetine [Prozac] 40 mg capsule 40 mg PO DAILY Qty: 60 0RF risperidone 2 mg tablet 2 mg PO BEDTIME Qty: 60 0RF Referrals: Miscellaneous,Doctor, MD [Primary Care Provider] - Stand Alone Forms: Patient Portal/API
[2023-05-19] MEDS: DOXYCYCLINE HYCLATE 100 MG TABLET PO (17:58)
== END 2023-05-19 18:06 | disposition home or self-care (01) ==
PROVIDERS: Emergency Provider Emergency Medicine
DX: L02.213 Cutaneous abscess of chest wall (principal); S83.92XA Sprain of unspecified site of left knee, initial encounter; Z76.0 Encounter for issue of repeat prescription
CPT/HCPCS: 10060; 87070; 87075; 87077; 87186; 87205; 99283

== ENCOUNTER 2023-06-05 22:35 | Emergency (ER) | payer OTHER, MEDICAID, SELFPAY ==
[2023-06-05 22:38] VITALS: BP 137/85; PULSE 85; RESP 16; TEMP 36.8; O2SAT 100; BMI 35.3
--- NOTE | 2023-06-05 22:42 | DI.RAD.S_ITS ---
PROCEDURE: XR FOOT RT MIN 3V INDICATIONS: swelling pain TECHNIQUE: 3 views of the foot were acquired. COMPARISON: None. FINDINGS: Bones: No fractures or dislocations. Large plantar calcaneal enthesophyte. Mild posterior calcaneal enthesophyte. No suspicious bony lesions. Soft tissues: No tibiotalar joint effusion. Achilles tendon appears normal. IMPRESSION: No acute bony abnormality. Dictated by: Philippe Musa M.D. on 06/05/2023 at 23:32 Approved by: Philippe Musa M.D. on 06/05/2023 at 23:33
--- NOTE | 2023-06-05 22:44 | DI.RAD.S_ITS ---
PROCEDURE: XR RIBS RT MIN 3V W CXR 1V INDICATIONS: right rib pain TECHNIQUE: 4 views of the ribs were acquired, along with a single view chest. COMPARISON: None. FINDINGS: Surgical changes and devices: None. Bones and chest wall: No fractures or dislocations. No suspicious bony lesions. Overlying soft tissues appear unremarkable. Lungs and pleura: No pleural effusions or pneumothorax. Lungs appear clear. Mediastinum: Mediastinal contours appear normal. Heart size is normal. IMPRESSION: No displaced rib fracture or pneumothorax. Dictated by: Philippe Musa M.D. on 06/05/2023 at 23:34 Approved by: Philippe Musa M.D. on 06/05/2023 at 23:35
--- NOTE | 2023-06-06 00:53 | ED.LOWEXIN ---
HPI - Extremity Injury (Lower) General Chief Complaint: Extremity Injury, Lower Stated Complaint: rt foot pain, rib pain Time Seen by Provider: 06/05/23 23:06 Source: patient Mode of arrival: Ambulatory History of Present Illness HPI Narrative: 47-year-old gentleman with a history of schizoaffective disorder presents today complaining of right ankle pain that has been bothering him for 2 weeks. He does not describe any specific injury but when questioned says that he is injured it multiple times. He also complains of right anterior chest wall pain. Again he can not describe any specific injury is not sure of the overall timeframe and has fairly dramatic effective behavior when he is demonstrating the area of pain. He has not complaining of fevers, cough, chills. He states that he has a place to stay and has ibuprofen available at home. He states that he does have his usual medications and has been taking them. Describes no fevers cough or chills. No nausea vomiting or diarrhea. No headaches Related Data Previous Rx's Medication Instructions Recorded divalproex 500 mg tablet,delayed 500 mg PO BEDTIME #60 tabs 05/19/23 release (Depakote) doxycycline hyclate 100 mg capsule 100 mg PO BID #20 caps 05/19/23 fluoxetine 40 mg capsule (Prozac) 40 mg PO DAILY #60 caps 05/19/23 risperidone 2 mg tablet 2 mg PO BEDTIME #60 tabs 05/19/23 Allergies Allergy/AdvReac Type Severity Reaction Status Date / Time No Known Drug Allergies Allergy Verified 06/05/23 22:41 Review of Systems Review of Systems Narrative: Pertinent positive and negative findings as per HPI Patient History Medical History Schizoaffective disorder Opioid use disorder Cervical stenosis of spine Cervical vertebral fracture Hyperlipidemia Hypertension Bipolar 1 disorder Coronary artery disease Social History Smoking Status: Current every day smoker Smoking Status: Current every day smoker tobacco type: cigarettes alcohol intake frequency: 0-2 drinks per day Substance Use Type: marijuana and methamphetamine Exam Initial Vital Signs Initial Vital Signs: Vital Signs Temperature 98.3 F 06/05/23 22:38 Pulse Rate 85 06/05/23 22:38 Respiratory Rate 16 06/05/23 22:38 Blood Pressure 137/85 06/05/23 22:38 Pulse Oximetry 100 06/05/23 22:38 Oxygen Delivery Method Room Air 06/05/23 22:38 General: In no acute distress, able to speak in full sentences, unable to be specific in his descriptions or locations of pain HEENT: Moist mucous membranes, normal sclera with reactive pupils, smells strongly of tobacco Respiratory: Lungs are clear to auscultation, no wheezing no rales no rhonchi. Full and symmetrical air movement Chest: He has some tenderness right nipple to mid axillary line just under the breast that is tender to touch but has no abrasion, contusion, bruising, abscess or fluctuance appreciated. No masses or subcutaneous nodules are noted Cardiac: Regular rate and rhythm no murmurs no bruits Abdomen: Soft, nontender, good bowel tones, no flank pain Extremities: No trauma, well perfused. He is some minor swelling and ecchymosis over the lateral aspect of the right malleolus. No bony point tenderness, no skin breakdown, no significant lower extremity edema Psych: Cooperative, vague complaints and descriptions and somewhat tangential but complete sentences Procedures Orthopedic Splinting/Casting Right ankle: Time of procedure: 01:23 Side: right Lower Extremity Injury Location: ankle Lower Extremity Immobilizer: [employer] Post splinting neuro exam: intact Post splinting vascular exam: no change Placed by: Nursing Course Orders Ordered: ED Orders 06/05/23 22:42 XR foot RT min 3V Stat 06/05/23 22:44 XR ribs RT min 3V w CXR1V Stat Discontinued Medications Acetaminophen (Acetaminophen 325 Mg Tablet) 325 mg PO NOW ONE Stop: 06/06/23 01:13 Ibuprofen (Ibuprofen 400 Mg Tablet) 400 mg PO NOW ONE Stop: 06/06/23 01:13 Vital Signs Vital signs: Vital Signs - 8 hr 06/05/23 22:38 Temperature 98.3 F Pulse Rate 85 Respiratory Rate 16 Blood Pressure 137/85 Pulse Oximetry 100 Oxygen Delivery Method Room Air MDM - Extremity Injury (Lower) MDM Narrative Medical decision making narrative: CC: Right anterior chest wall pain and right ankle pain Complicating co-morbidities: Schizoaffective disorder. Patient is very vague on how he suffered his injuries and how long the complaints have been present Data collected from: patient Social determinants of health that may influence the patients condition: Patient states he currently has housing Medical records reviewed: Recent ER note is reviewed Differential considered: Rib fracture, chest wall contusion, chest wall abscess, breast mass, ankle sprain, ankle fracture, ankle contusion Exam documented above, pertinent findings include: Tenderness over the right anterior chest wall from the nipple line to the anterior axillary line without findings beyond palpable tenderness. Right ankle has some ecchymosis laterally with full range of motion otherwise. Mild edema, no bony point tenderness. No knee or hip pain associated with this Imaging studies independently reviewed: Foot x-ray of the right is unremarkable, rib x-ray of the right, equally unremarkable Treatments: Ankle air splint is applied by nursing staff Discussion: 39-year-old gentleman with schizoaffective disorder with complaints of right anterior chest pain and right ankle pain. Unclear how he sustained any these injuries. No significant abnormalities that would require advanced imaging, lab work or hospitalization at this time. Reassurance is given. He has given an ankle air splint along with instructions on use. He is able to walk and crutches were not required at this time. Recommended ibuprofen and Tylenol to help with the pain. He is safe for discharge Discharge Plan Departure Patient Disposition: Home Clinical Impression: Chest wall contusion Qualifiers: Encounter type: initial encounter Laterality: right Qualified Code(s): S20.211A - Contusion of right front wall of thorax, initial encounter Right ankle sprain Qualifiers: Encounter type: initial encounter Involved ligament of ankle: unspecified ligament Qualified Code(s): S93.401A - Sprain of unspecified ligament of right ankle, initial encounter Instructions: DI for Ankle Sprain, DI for Contusion Activity Restrictions/Additional Instructions: Thank you for coming in today Your chest x-ray was reassuring. You do not have any broken ribs. On your clinical exam your tender over the front part of your chest but there is no obvious infection, bruises or other abnormalities. You have sprained your right ankle, there is some slight swelling and bruising on the outer aspect. I have given you an ankle splint to help so that your ankle will not roll while you are walking but still allow you to walk. Using 400 mg of ibuprofen (2 [id number] pills) and 1 Tylenol every 6 hours can be very helpful in controlling pain for both of the symptoms If you find that you are not improving, I would encourage you to follow up with your primary care physician. If you feel that you have new symptoms or additional concerns please feel free to return to the ER Prescriptions: No Action doxycycline hyclate 100 mg capsule 100 mg PO BID Qty: 20 0RF divalproex [Depakote] 500 mg tablet,delayed release (DR/EC) 500 mg PO BEDTIME Qty: 60 0RF fluoxetine [Prozac] 40 mg capsule 40 mg PO DAILY Qty: 60 0RF risperidone 2 mg tablet 2 mg PO BEDTIME Qty: 60 0RF Referrals: Miscellaneous,Doctor, MD [Primary Care Provider] - Stand Alone Forms: Patient Portal/API
== END 2023-06-06 01:34 | disposition home or self-care (01) ==
PROVIDERS: Emergency Provider Emergency Medicine
DX: S20.211A Contusion of right front wall of thorax, initial encounter (principal); S93.401A Sprain of unspecified ligament of right ankle, initial encounter; X58.XXXA Exposure to other specified factors, initial encounter
CPT/HCPCS: 29405; 71101; 73630; 99281; 99283

== ENCOUNTER 2023-06-09 11:58 | Emergency (ER) | payer OTHER, MEDICAID, SELFPAY ==
[2023-06-09 12:11] VITALS: BP 143/91; PULSE 98; RESP 18; TEMP 36.7; O2SAT 100; BMI 35.9
--- NOTE | 2023-06-09 12:21 | PC.NURSE ---
Nicolle PURCHASER present for triage assessment
--- NOTE | 2023-06-09 12:28 | ED_ITS ---
HPI - Psych <Shane Almanza MD - Last Filed: 06/19/23 07:33> General Chief Complaint: Psychiatric Symptoms Stated Complaint: threat to self and others Time Seen by Provider: 06/09/23 12:24 Source: patient Mode of arrival: Ambulatory History of Present Illness HPI Narrative: Patient here voluntarily. Desires [facility] admission. Patient states he has been seeing his ex partner, [place], following him around where he goes. He is homeless. He states there is a restraining order against him. He can not call the police he states. No SI. At times he wants to hurt her. He is history of schizoaffective disorder and bipolar. He is on multiple antipsychotics. He states he has been taking them. No auditory hallucinations. No recent illness. He states he has been admitted to [facility] in the past Related Data Previous Rx's Medication Instructions Recorded divalproex 500 mg tablet,delayed 500 mg PO BEDTIME #60 tabs 05/19/23 release (Depakote) doxycycline hyclate 100 mg capsule 100 mg PO BID #20 caps 05/19/23 fluoxetine 40 mg capsule (Prozac) 40 mg PO DAILY #60 caps 05/19/23 risperidone 2 mg tablet 2 mg PO BEDTIME #60 tabs 05/19/23 Allergies Allergy/AdvReac Type Severity Reaction Status Date / Time No Known Drug Allergies Allergy Verified 06/05/23 22:41 Review of Systems <Shane Almanza MD - Last Filed: 06/19/23 07:33> Review of Systems Narrative: GENERAL: negative chills, fatigue, malaise, fever, sweats. HEENT: negative sinus pain, ear pain, sore throat RESPIRATORY: negative dyspnea, cough CARDIOVASCULAR: negative chest pain, palpitations GASTROINTESTINAL: negative nausea, vomiting, abdominal pain : negative dysuria, frequency, hematuria MUSCULOSKELETAL: negative muscle or bony pain SKIN: negative rash, skin lesions NEUROLOGIC: negative weakness, numbness PSYCH: Negative SI positive HI, negative auditory hallucinations ROS Unobtainable: All systems reviewed & are unremarkable except as noted in HPI and below Patient History <Shane Almanza MD - Last Filed: 06/19/23 07:33> Medical History Schizoaffective disorder Opioid use disorder Cervical stenosis of spine Cervical vertebral fracture Hyperlipidemia Hypertension Bipolar 1 disorder Coronary artery disease Social History Smoking Status: Current every day smoker Smoking Status: Current every day smoker tobacco type: cigarettes alcohol intake frequency: 0-2 drinks per day Substance Use Type: marijuana and methamphetamine Exam <Shane Almanza MD - Last Filed: 06/19/23 07:33> Narrative Exam Narrative: GENERAL: in no distress, not toxic not dyspneic HEAD: Normocephalic. EYES: Pupils equal round ENT: Mucous membranes moist. NECK: Trachea midline. CARDIOVASCULAR: Regular rate and rhythm RESPIRATORY: Clear to auscultation. Breath sounds equal bilaterally. No wheezes, rales, or rhonchi. GASTROINTESTINAL: Abdomen soft, non-tender EXTREMITIES: No gross deformities. BACK: No flank tenderness. NEURO: AOx4. SKIN: Warm and dry PSYCH: Not anxious, is cooperative, no rapid speech no pressured speech. Denies SI, positive HI Initial Vital Signs Initial Vital Signs: Vital Signs Temperature 98.1 F 06/09/23 12:11 Pulse Rate 98 H 06/09/23 12:11 Respiratory Rate 18 06/09/23 12:11 Blood Pressure 143/91 H 06/09/23 12:11 Pulse Oximetry 100 06/09/23 12:11 Oxygen Delivery Method Room Air 06/09/23 12:11 <Olivia Montes DO - Last Filed: 06/12/23 09:03> Initial Vital Signs Initial Vital Signs: Vital Signs Temperature 98.1 F 06/09/23 12:11 Pulse Rate 98 H 06/09/23 12:11 Respiratory Rate 18 06/09/23 12:11 Blood Pressure 143/91 H 06/09/23 12:11 Pulse Oximetry 100 06/09/23 12:11 Oxygen Delivery Method Room Air 06/09/23 12:11 <Catia Yancey MD - Last Filed: 06/11/23 08:47> Initial Vital Signs Initial Vital Signs: Vital Signs Temperature 98.1 F 06/09/23 12:11 Pulse Rate 98 H 06/09/23 12:11 Respiratory Rate 18 06/09/23 12:11 Blood Pressure 143/91 H 06/09/23 12:11 Pulse Oximetry 100 06/09/23 12:11 Oxygen Delivery Method Room Air 06/09/23 12:11 Course <Shane Almanza MD - Last Filed: 06/19/23 07:33> Orders Ordered: Discontinued Medications Acetaminophen (Acetaminophen 325 Mg Tablet) 325 mg PO NOW ONE Stop: 06/10/23 10:47 Last Admin: 06/10/23 10:56 Dose: 325 mg Documented By: SPF Divalproex Sodium (Divalproex Er 250 Mg Tab) 500 mg PO NOW ONE Stop: 06/09/23 22:51 Last Admin: 06/09/23 23:09 Dose: 500 mg Documented By: AB Fluoxetine HCl (Fluoxetine 20 Mg Capsule) 40 mg PO NOW ONE Stop: 06/09/23 22:52 Last Admin: 06/09/23 23:09 Dose: 40 mg Documented By: AB Ibuprofen (Ibuprofen 400 Mg Tablet) 400 mg PO NOW ONE Stop: 06/10/23 10:47 Last Admin: 06/10/23 10:57 Dose: 400 mg Documented By: SPF Nicotine (Nicotine 21 Mg Patch) 21 mg TOP NOW ONE Stop: 06/09/23 16:13 Last Admin: 06/09/23 17:51 Dose: Not Given Documented By: SB Olanzapine (Olanzapine Odt 10 Mg Tab) 10 mg PO NOW ONE Stop: 06/09/23 18:56 Last Admin: 06/09/23 19:02 Dose: Not Given Documented By: SB Olanzapine (Olanzapine 10 Mg Vial) 10 mg IM NOW ONE Stop: 06/10/23 07:35 Last Admin: 06/10/23 09:05 Dose: Not Given Documented By: SPF Olanzapine (Olanzapine Odt 10 Mg Tab) 10 mg PO NOW ONE Stop: 06/10/23 07:36 Last Admin: 06/10/23 08:11 Dose: Not Given Documented By: SPF Quetiapine Fumarate (Quetiapine 25 Mg Tablet) 50 mg PO NOW ONE Stop: 06/09/23 22:51 Last Admin: 06/09/23 23:09 Dose: 50 mg Documented By: AB Risperidone (Risperidone 1 Mg Tablet) 2 mg PO NOW ONE Stop: 06/09/23 22:52 Last Admin: 06/09/23 23:09 Dose: 2 mg Documented By: AB Vital Signs Vital signs: Vital Signs - 8 hr 06/10/23 07:36 Pulse Rate 71 Respiratory Rate 22 Blood Pressure 131/68 Pulse Oximetry 97 Oxygen Delivery Method Room Air <Olivia Montes DO - Last Filed: 06/12/23 09:03> Orders Ordered: Discontinued Medications Acetaminophen (Acetaminophen 325 Mg Tablet) 325 mg PO NOW ONE Stop: 06/10/23 10:47 Last Admin: 06/10/23 10:56 Dose: 325 mg Documented By: SPF Divalproex Sodium (Divalproex Er 250 Mg Tab) 500 mg PO NOW ONE Stop: 06/09/23 22:51 Last Admin: 06/09/23 23:09 Dose: 500 mg Documented By: AB Fluoxetine HCl (Fluoxetine 20 Mg Capsule) 40 mg PO NOW ONE Stop: 06/09/23 22:52 Last Admin: 06/09/23 23:09 Dose: 40 mg Documented By: AB Ibuprofen (Ibuprofen 400 Mg Tablet) 400 mg PO NOW ONE Stop: 06/10/23 10:47 Last Admin: 06/10/23 10:57 Dose: 400 mg Documented By: ROBERTH Nicotine (Nicotine 21 Mg Patch) 21 mg TOP NOW ONE Stop: 06/09/23 16:13 Last Admin: 06/09/23 17:51 Dose: Not Given Documented By: SB Olanzapine (Olanzapine Odt 10 Mg Tab) 10 mg PO NOW ONE Stop: 06/09/23 18:56 Last Admin: 06/09/23 19:02 Dose: Not Given Documented By: SB Olanzapine (Olanzapine 10 Mg Vial) 10 mg IM NOW ONE Stop: 06/10/23 07:35 Last Admin: 06/10/23 09:05 Dose: Not Given Documented By: SPF Olanzapine (Olanzapine Odt 10 Mg Tab) 10 mg PO NOW ONE Stop: 06/10/23 07:36 Last Admin: 06/10/23 08:11 Dose: Not Given Documented By: SPF Quetiapine Fumarate (Quetiapine 25 Mg Tablet) 50 mg PO NOW ONE Stop: 06/09/23 22:51 Last Admin: 06/09/23 23:09 Dose: 50 mg Documented By: Risperidone (Risperidone 1 Mg Tablet) 2 mg PO NOW ONE Stop: 06/09/23 22:52 Last Admin: 06/09/23 23:09 Dose: 2 mg Documented By: Vital Signs Vital signs: Vital Signs - 8 hr 06/10/23 07:36 Pulse Rate 71 Respiratory Rate 22 Blood Pressure 131/68 Pulse Oximetry 97 Oxygen Delivery Method Room Air <Catia Yancey MD - Last Filed: 06/11/23 08:47> Orders Ordered: Discontinued Medications Acetaminophen (Acetaminophen 325 Mg Tablet) 325 mg PO NOW ONE Stop: 06/10/23 10:47 Last Admin: 06/10/23 10:56 Dose: 325 mg Documented By: SPF Divalproex Sodium (Divalproex Er 250 Mg Tab) 500 mg PO NOW ONE Stop: 06/09/23 22:51 Last Admin: 06/09/23 23:09 Dose: 500 mg Documented By: AB Fluoxetine HCl (Fluoxetine 20 Mg Capsule) 40 mg PO NOW ONE Stop: 06/09/23 22:52 Last Admin: 06/09/23 23:09 Dose: 40 mg Documented By: AB Ibuprofen (Ibuprofen 400 Mg Tablet) 400 mg PO NOW ONE Stop: 06/10/23 10:47 Last Admin: 06/10/23 10:57 Dose: 400 mg Documented By: SPF Nicotine (Nicotine 21 Mg Patch) 21 mg TOP NOW ONE Stop: 06/09/23 16:13 Last Admin: 06/09/23 17:51 Dose: Not Given Documented By: SB Olanzapine (Olanzapine Odt 10 Mg Tab) 10 mg PO NOW ONE Stop: 06/09/23 18:56 Last Admin: 06/09/23 19:02 Dose: Not Given Documented By: SB Olanzapine (Olanzapine 10 Mg Vial) 10 mg IM NOW ONE Stop: 06/10/23 07:35 Last Admin: 06/10/23 09:05 Dose: Not Given Documented By: SPF Olanzapine (Olanzapine Odt 10 Mg Tab) 10 mg PO NOW ONE Stop: 06/10/23 07:36 Last Admin: 06/10/23 08:11 Dose: Not Given Documented By: SPF Quetiapine Fumarate (Quetiapine 25 Mg Tablet) 50 mg PO NOW ONE Stop: 06/09/23 22:51 Last Admin: 06/09/23 23:09 Dose: 50 mg Documented By: Risperidone (Risperidone 1 Mg Tablet) 2 mg PO NOW ONE Stop: 06/09/23 22:52 Last Admin: 06/09/23 23:09 Dose: 2 mg Documented By: Vital Signs Vital signs: Vital Signs - 8 hr 06/10/23 07:36 Pulse Rate 71 Respiratory Rate 22 Blood Pressure 131/68 Pulse Oximetry 97 Oxygen Delivery Method Room Air MDM - Psych <Shane Almanza MD - Last Filed: 06/19/23 07:33> Lab Data 06/09/23 12:27 06/09/23 12:27 Labs: Lab Results 06/09/23 06/09/23 06/09/23 Range/Units 12:27 12:43 13:15 WBC 13.0 H (4.5-11.0) X10^3/uL RBC 4.34 L (4.5-5.9) X10^6/uL Hgb 13.5 (13.5-17.5) g/dL Hct 40.1 L (41-53) % MCV 92.4 (80-100) fL MCH 31.0 (26-34) PG MCHC 33.6 (30-36) % RDW 14.7 (11.6-14.8) % Plt Count 246 (150-400) X10^3/uL Neut % (Auto) 71.7 (50-75) % Lymph % (Auto) 22.5 L (25-40) % [place] % (Auto) 4.5 (3-14) % Eos % (Auto) 1.0 L (2-4) % Baso % (Auto) 0.3 (0-2) % Neut # (Auto) 9300 H (1682-5456) /uL Lymph # (Auto) 2900 (6663-4178) /uL [place] # (Auto) 600 (0-900) /uL Eos # (Auto) 100 (0-450) /uL Baso # (Auto) 0 (0-100) /uL Sodium 140 (137-145) mmol/L Potassium 3.7 (3.4-5.1) mmol/L Chloride 107 (98-107) mmol/L Carbon Dioxide 29 (22-32) mmol/L BUN 15 (9-20) mg/dL Creatinine 0.63 L (0.66-1.25) mg/dL Estimated GFR > 60 (>60) mL/min BUN/Creatinine Ratio 23.8 H (6-22) Glucose 103 H (70-100) mg/dL Calcium 9.0 (8.4-10.2) mg/dL Total Bilirubin 0.5 (0.2-1.3) mg/dL AST 20 (17-59) IU/L ALT 18 (<50) IU/L Alkaline Phosphatase 85 (38-126) U/L Total Protein 7.4 (6.3-8.2) g/dL Albumin 3.9 (3.5-5.0) g/dL Globulin 3.5 (1.7-4.1) g/dL Albumin/Globulin Ratio 1.1 (1.0-2.8) TSH 0.923 (0.47-4.68) uIU/mL Free T4 1.20 (0.78-2.19) ng/dL Salicylates < 1.0 (<20) mg/dL U Opiates 300ng/mL cut Negative (Negative) Ur Oxycodone Screen Negative (Negative) Urine Methadone Screen Negative (Negative) Acetaminophen < 10 (10-30) ug/mL Ur Barbiturates Screen Negative (Negative) Total Valproic Acid (50-100) ug/mL U Tricyclic Antidepress Negative (Negative) Ur Phencyclidine Scrn Negative (Negative) Ur Amphetamines Screen Negative (Negative) U Methamphetamines Scrn Negative (Negative) Ur MDMA Scrn (Ecstasy) Negative (Negative) U Benzodiazepines Scrn Negative (Negative) Urine Cocaine Screen Negative (Negative) U Marijuana (THC) Screen Positive H (Negative) Urine pH Normal (Normal) Urine Specific [place] Normal (Normal) Ethyl Alcohol < 10 ( - 10) mg/dL Ur Creatinine Normal (Normal) SARS-CoV-2 (PCR) Negative (Negative) 06/09/23 Range/Units 14:25 WBC (4.5-11.0) X10^3/uL RBC (4.5-5.9) X10^6/uL Hgb (13.5-17.5) g/dL Hct (41-53) % MCV (80-100) fL MCH (26-34) PG MCHC (30-36) % RDW (11.6-14.8) % Plt Count (150-400) X10^3/uL Neut % (Auto) (50-75) % Lymph % (Auto) (25-40) % [place] % (Auto) (3-14) % Eos % (Auto) (2-4) % Baso % (Auto) (0-2) % Neut # (Auto) (0636-6973) /uL Lymph # (Auto) (1955-7474) /uL [place] # (Auto) (0-900) /uL Eos # (Auto) (0-450) /uL Baso # (Auto) (0-100) /uL Sodium (137-145) mmol/L Potassium (3.4-5.1) mmol/L Chloride (98-107) mmol/L Carbon Dioxide (22-32) mmol/L BUN (9-20) mg/dL Creatinine (0.66-1.25) mg/dL Estimated GFR (>60) mL/min BUN/Creatinine Ratio (6-22) Glucose (70-100) mg/dL Calcium (8.4-10.2) mg/dL Total Bilirubin (0.2-1.3) mg/dL AST (17-59) IU/L ALT (<50) IU/L Alkaline Phosphatase (38-126) U/L Total Protein (6.3-8.2) g/dL Albumin (3.5-5.0) g/dL Globulin (1.7-4.1) g/dL Albumin/Globulin Ratio (1.0-2.8) TSH (0.47-4.68) uIU/mL Free T4 (0.78-2.19) ng/dL Salicylates (<20) mg/dL U Opiates 300ng/mL cut (Negative) Ur Oxycodone Screen (Negative) Urine Methadone Screen (Negative) Acetaminophen (10-30) ug/mL Ur Barbiturates Screen (Negative) Total Valproic Acid 20 L (50-100) ug/mL U Tricyclic Antidepress (Negative) Ur Phencyclidine Scrn (Negative) Ur Amphetamines Screen (Negative) U Methamphetamines Scrn (Negative) Ur MDMA Scrn (Ecstasy) (Negative) U Benzodiazepines Scrn (Negative) Urine Cocaine Screen (Negative) U Marijuana (THC) Screen (Negative) Urine pH (Normal) Urine Specific [place] (Normal) Ethyl Alcohol ( - 10) mg/dL Ur Creatinine (Normal) SARS-CoV-2 (PCR) (Negative) Urine Dip Bedside Urine Glucose Negative Bedside Urine Bilirubin - Negative Bedside Urine Ketone - Negative Urine Specific [place] 1.030 Bedside Urine Occult Blood - Negative Bedside Urine pH 6.0 Bedside Urine Protein - Negative Bedside Urine Urobilinogen - Negative Bedside Urine Nitrite - Negative Bedside Urine Leukocytes - Negative Esterase MDM Narrative Medical decision making narrative: Patient here voluntarily. Desires [facility] admission. Patient states he has been seeing his ex partner, [place], following him around where he goes. He is homeless. He states there is a restraining order against him. He can not call the police he states. No SI. At times he wants to hurt her. He is history of schizoaffective disorder and bipolar. He is on multiple antipsychotics. He states he has been taking them. No auditory hallucinations. No recent illness. He states he has been admitted to [facility] in the past After history and exam social work consult CBC CMP TSH alcohol level drug screen MDM Medical records reviewed: No recent visit for this complaint Differential considered: Includes but not limited to HI, psychosis, bipolar, schizophrenia Lab Test results independently reviewed as above. Pertinent findings: WBC 13.0 sodium 140 potassium 3.7 drug screen positive marijuana alcohol negative Imaging studies independently reviewed: None indicated Consultations: 12:30 p.m.. [facility] social work has already started evaluation, law enforcement was contacted regarding the threats. DCR also contacted and at this time no ARTHUR, would recommend low stimulation as to not agitated patient more 5:30 p.m.. Patient has been accepted to [facility], nurse practitioner Laci has accepted patient Treatments: None indicated at this time patient has been cooperative. During course of stay. Re-evaluations: Patient remains cooperative. No distress. Desires inpatient care Discussion: Appropriate for transfer patient is voluntary does need require inpatient care. Diagnosis: Bipolar/schizoaffective disorder/homicidal ideation <Olivia Montes, DO - Last Filed: 06/12/23 09:03> Lab Data Labs: Lab Results 06/09/23 06/09/23 06/09/23 Range/Units 12:27 12:43 13:15 WBC 13.0 H (4.5-11.0) X10^3/uL RBC 4.34 L (4.5-5.9) X10^6/uL Hgb 13.5 (13.5-17.5) g/dL Hct 40.1 L (41-53) % MCV 92.4 (80-100) fL MCH 31.0 (26-34) PG MCHC 33.6 (30-36) % RDW 14.7 (11.6-14.8) % Plt Count 246 (150-400) X10^3/uL Neut % (Auto) 71.7 (50-75) % Lymph % (Auto) 22.5 L (25-40) % [place] % (Auto) 4.5 (3-14) % Eos % (Auto) 1.0 L (2-4) % Baso % (Auto) 0.3 (0-2) % Neut # (Auto) 9300 H (6496-4413) /uL Lymph # (Auto) 2900 (5833-3050) /uL [place] # (Auto) 600 (0-900) /uL Eos # (Auto) 100 (0-450) /uL Baso # (Auto) 0 (0-100) /uL Sodium 140 (137-145) mmol/L Potassium 3.7 (3.4-5.1) mmol/L Chloride 107 (98-107) mmol/L Carbon Dioxide 29 (22-32) mmol/L BUN 15 (9-20) mg/dL Creatinine 0.63 L (0.66-1.25) mg/dL Estimated GFR > 60 (>60) mL/min BUN/Creatinine Ratio 23.8 H (6-22) Glucose 103 H (70-100) mg/dL Calcium 9.0 (8.4-10.2) mg/dL Total Bilirubin 0.5 (0.2-1.3) mg/dL AST 20 (17-59) IU/L ALT 18 (<50) IU/L Alkaline Phosphatase 85 (38-126) U/L Total Protein 7.4 (6.3-8.2) g/dL Albumin 3.9 (3.5-5.0) g/dL Globulin 3.5 (1.7-4.1) g/dL Albumin/Globulin Ratio 1.1 (1.0-2.8) TSH 0.923 (0.47-4.68) uIU/mL Free T4 1.20 (0.78-2.19) ng/dL Salicylates < 1.0 (<20) mg/dL U Opiates 300ng/mL cut Negative (Negative) Ur Oxycodone Screen Negative (Negative) Urine Methadone Screen Negative (Negative) Acetaminophen < 10 (10-30) ug/mL Ur Barbiturates Screen Negative (Negative) Total Valproic Acid (50-100) ug/mL U Tricyclic Antidepress Negative (Negative) Ur Phencyclidine Scrn Negative (Negative) Ur Amphetamines Screen Negative (Negative) U Methamphetamines Scrn Negative (Negative) Ur MDMA Scrn (Ecstasy) Negative (Negative) U Benzodiazepines Scrn Negative (Negative) Urine Cocaine Screen Negative (Negative) U Marijuana (THC) Screen Positive H (Negative) Urine pH Normal (Normal) Urine Specific [place] Normal (Normal) Ethyl Alcohol < 10 ( - 10) mg/dL Ur Creatinine Normal (Normal) SARS-CoV-2 (PCR) Negative (Negative) 06/09/23 Range/Units 14:25 WBC (4.5-11.0) X10^3/uL RBC (4.5-5.9) X10^6/uL Hgb (13.5-17.5) g/dL Hct (41-53) % MCV (80-100) fL MCH (26-34) PG MCHC (30-36) % RDW (11.6-14.8) % Plt Count (150-400) X10^3/uL Neut % (Auto) (50-75) % Lymph % (Auto) (25-40) % [place] % (Auto) (3-14) % Eos % (Auto) (2-4) % Baso % (Auto) (0-2) % Neut # (Auto) (7999-1823) /uL Lymph # (Auto) (8083-9402) /uL [place] # (Auto) (0-900) /uL Eos # (Auto) (0-450) /uL Baso # (Auto) (0-100) /uL Sodium (137-145) mmol/L Potassium (3.4-5.1) mmol/L Chloride (98-107) mmol/L Carbon Dioxide (22-32) mmol/L BUN (9-20) mg/dL Creatinine (0.66-1.25) mg/dL Estimated GFR (>60) mL/min BUN/Creatinine Ratio (6-22) Glucose (70-100) mg/dL Calcium (8.4-10.2) mg/dL Total Bilirubin (0.2-1.3) mg/dL AST (17-59) IU/L ALT (<50) IU/L Alkaline Phosphatase (38-126) U/L Total Protein (6.3-8.2) g/dL Albumin (3.5-5.0) g/dL Globulin (1.7-4.1) g/dL Albumin/Globulin Ratio (1.0-2.8) TSH (0.47-4.68) uIU/mL Free T4 (0.78-2.19) ng/dL Salicylates (<20) mg/dL U Opiates 300ng/mL cut (Negative) Ur Oxycodone Screen (Negative) Urine Methadone Screen (Negative) Acetaminophen (10-30) ug/mL Ur Barbiturates Screen (Negative) Total Valproic Acid 20 L (50-100) ug/mL U Tricyclic Antidepress (Negative) Ur Phencyclidine Scrn (Negative) Ur Amphetamines Screen (Negative) U Methamphetamines Scrn (Negative) Ur MDMA Scrn (Ecstasy) (Negative) U Benzodiazepines Scrn (Negative) Urine Cocaine Screen (Negative) U Marijuana (THC) Screen (Negative) Urine pH (Normal) Urine Specific [place] (Normal) Ethyl Alcohol ( - 10) mg/dL Ur Creatinine (Normal) SARS-CoV-2 (PCR) (Negative) Urine Dip Bedside Urine Glucose Negative Bedside Urine Bilirubin - Negative Bedside Urine Ketone - Negative Urine Specific [place] 1.030 Bedside Urine Occult Blood - Negative Bedside Urine pH 6.0 Bedside Urine Protein - Negative Bedside Urine Urobilinogen - Negative Bedside Urine Nitrite - Negative Bedside Urine Leukocytes - Negative Esterase [facility] Narrative Medical decision making narrative: Patient here voluntarily. Desires [facility] admission. Patient states he has been seeing his ex partner, [place], following him around where he goes. He is homeless. He states there is a restraining order against him. He can not call the police he states. No SI. At times he wants to hurt her. He is history of schizoaffective disorder and bipolar. He is on multiple antipsychotics. He states he has been taking them. No auditory hallucinations. No recent illness. He states he has been admitted to [facility] in the past After history and exam social work consult CBC CMP TSH alcohol level drug screen [facility] Medical records reviewed: No recent visit for this complaint Differential considered: Includes but not limited to HI, psychosis, bipolar, schizophrenia Lab Test results independently reviewed as above. Pertinent findings: WBC 13.0 sodium 140 potassium 3.7 drug screen positive marijuana alcohol negative Imaging studies independently reviewed: None indicated Consultations: 12:30 p.m.. [facility], social work has already started evaluation, law enforcement was contacted regarding the threats. DCR also contacted and at this time no ARTHUR, would recommend low stimulation as to not agitated patient more 5:30 p.m.. Patient has been accepted to [facility], nurse practitioner Laci has accepted patient Treatments: None indicated at this time patient has been cooperative. During course of stay. Re-evaluations: Patient remains cooperative. No distress. Desires inpatient care Discussion: Appropriate for transfer patient is voluntary does need require inpatient care. Diagnosis: Bipolar/schizoaffective disorder/homicidal ideation Patient signed out to myself by Dr. Almanza, patient has been initially voluntary he agreed to transfer to facility was accepted and has since changed his mind. He is not felt safe for disposition home after discussion with VALET SERVICE ATTENDANT and Dr. Almanza at signout and DCR has been initiated. VALET SERVICE ATTENDANT did attempt to reach patients ex partner to warn her, does not have contact information she did reach out to law enforcement who did have contact with his ex-partner, [place]. ANNIA Salomón in department and evaluated patient and patient is detained after evaluation. Patient was accepted at [facility] for involuntary placement. by Benito Holt NP. They ask that patient does not arrive until after 9:00 a.m. 06/11/23. Patient was informed of his detainment. He expressed frustration states he does not want to go. He did ask for his evening medications. Was given his home doses of medications. No additional events overnight. Patient signed out to Dr. Yancey while awaiting transport to [facility] in the morning. <Catia Yancey MD - Last Filed: 06/11/23 08:47> Lab Data Labs: Lab Results 06/09/23 06/09/23 06/09/23 Range/Units 12:27 12:43 13:15 WBC 13.0 H (4.5-11.0) X10^3/uL RBC 4.34 L (4.5-5.9) X10^6/uL Hgb 13.5 (13.5-17.5) g/dL Hct 40.1 L (41-53) % MCV 92.4 (80-100) fL MCH 31.0 (26-34) PG MCHC 33.6 (30-36) % RDW 14.7 (11.6-14.8) % Plt Count 246 (150-400) X10^3/uL Neut % (Auto) 71.7 (50-75) % Lymph % (Auto) 22.5 L (25-40) % [place] % (Auto) 4.5 (3-14) % Eos % (Auto) 1.0 L (2-4) % Baso % (Auto) 0.3 (0-2) % Neut # (Auto) 9300 H (5255-3212) /uL Lymph # (Auto) 2900 (3021-0276) /uL [place] # (Auto) 600 (0-900) /uL Eos # (Auto) 100 (0-450) /uL Baso # (Auto) 0 (0-100) /uL Sodium 140 (137-145) mmol/L Potassium 3.7 (3.4-5.1) mmol/L Chloride 107 (98-107) mmol/L Carbon Dioxide 29 (22-32) mmol/L BUN 15 (9-20) mg/dL Creatinine 0.63 L (0.66-1.25) mg/dL Estimated GFR > 60 (>60) mL/min BUN/Creatinine Ratio 23.8 H (6-22) Glucose 103 H (70-100) mg/dL Calcium 9.0 (8.4-10.2) mg/dL Total Bilirubin 0.5 (0.2-1.3) mg/dL AST 20 (17-59) IU/L ALT 18 (<50) IU/L Alkaline Phosphatase 85 (38-126) U/L Total Protein 7.4 (6.3-8.2) g/dL Albumin 3.9 (3.5-5.0) g/dL Globulin 3.5 (1.7-4.1) g/dL Albumin/Globulin Ratio 1.1 (1.0-2.8) TSH 0.923 (0.47-4.68) uIU/mL Free T4 1.20 (0.78-2.19) ng/dL Salicylates < 1.0 (<20) mg/dL U Opiates 300ng/mL cut Negative (Negative) Ur Oxycodone Screen Negative (Negative) Urine Methadone Screen Negative (Negative) Acetaminophen < 10 (10-30) ug/mL Ur Barbiturates Screen Negative (Negative) Total Valproic Acid (50-100) ug/mL U Tricyclic Antidepress Negative (Negative) Ur Phencyclidine Scrn Negative (Negative) Ur Amphetamines Screen Negative (Negative) U Methamphetamines Scrn Negative (Negative) Ur MDMA Scrn (Ecstasy) Negative (Negative) U Benzodiazepines Scrn Negative (Negative) Urine Cocaine Screen Negative (Negative) U Marijuana (THC) Screen Positive H (Negative) Urine pH Normal (Normal) Urine Specific [place] Normal (Normal) Ethyl Alcohol < 10 ( - 10) mg/dL Ur Creatinine Normal (Normal) SARS-CoV-2 (PCR) Negative (Negative) 06/09/23 Range/Units 14:25 WBC (4.5-11.0) X10^3/uL RBC (4.5-5.9) X10^6/uL Hgb (13.5-17.5) g/dL Hct (41-53) % MCV (80-100) fL MCH (26-34) PG MCHC (30-36) % RDW (11.6-14.8) % Plt Count (150-400) X10^3/uL Neut % (Auto) (50-75) % Lymph % (Auto) (25-40) % [place] % (Auto) (3-14) % Eos % (Auto) (2-4) % Baso % (Auto) (0-2) % Neut # (Auto) (9224-2186) /uL Lymph # (Auto) (3123-5954) /uL [place] # (Auto) (0-900) /uL Eos # (Auto) (0-450) /uL Baso # (Auto) (0-100) /uL Sodium (137-145) mmol/L Potassium (3.4-5.1) mmol/L Chloride (98-107) mmol/L Carbon Dioxide (22-32) mmol/L BUN (9-20) mg/dL Creatinine (0.66-1.25) mg/dL Estimated GFR (>60) mL/min BUN/Creatinine Ratio (6-22) Glucose (70-100) mg/dL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
[2023-06-09 12:38] LABS: Add Manual Diff / Slide Review NO; Basophils Absolute Auto 0 /uL (0-100); Basophils Percent Auto 0.3 % (0-2); Eosinophils Absolute Auto 100 /uL (0-450); Hematocrit 40.1 % (41-53); Hemoglobin 13.5 g/dL (13.5-17.5); Lymphocytes Absolute Auto 2900 /uL (1100-4500); Lymphocytes Percent Auto 22.5 % (25-40); Mean Corpuscular HGB Conc 33.6 % (30-36); Mean Corpuscular Volume 92.4 fL (80-100); Monocytes Absolute Auto 600 /uL (0-900); Monocytes Percent Auto 4.5 % (3-14); Neutrophils Absolute Auto 9300 /uL (1500-7000); Neutrophils Percent Auto 71.7 % (50-75); Platelet Count 246 X10^3/uL (150-400); Red Blood Cell Count 4.34 X10^6/uL (4.5-5.9); Red Cell Distribution Width 14.7 % (11.6-14.8)
--- NOTE | 2023-06-09 12:48 | PC.NURSE ---
PROFESSOR OF EXERCISE SCIENCE Note: attempted to have patient provide a urine sample, patient requested to wait another half an hour. Patient stated I peed right before I came in here.
[2023-06-09 13:00] LABS: Acetaminophen < 10 ug/mL (10-30); Alanine Aminotransferase 18 IU/L (<50); Albumin 3.9 g/dL (3.5-5.0); Albumin Globulin Ratio 1.1 (1.0-2.8); Alkaline Phosphatase 85 U/L (38-126); Aspartate Aminotransferase 20 IU/L (17-59); BUN Creatinine Ratio 23.8 (6-22); Bilirubin Total 0.5 mg/dL (0.2-1.3); Blood Urea Nitrogen 15 mg/dL (9-20); Carbon Dioxide 29 mmol/L (22-32); Chloride 107 mmol/L (98-107); Estimated Glomerular Filt Rate > 60 mL/min (>60); Ethanol (ETOH) < 10 mg/dL; Globulin 3.5 g/dL (1.7-4.1); Glucose 103 mg/dL (70-100); HEMOLYSIS < 15 (0-50); Potassium 3.7 mmol/L (3.4-5.1); Salicylate < 1.0 mg/dL (<20); Sodium 140 mmol/L (137-145); Total Protein 7.4 g/dL (6.3-8.2)
[2023-06-09 13:03] LABS: COVID19 -Nasal RAPID Negative (Negative)
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
[2023-06-09 13:31] LABS: Ur Creatinine Normal (Normal); Ur Specific Gravity Normal (Normal); Urine pH Normal (Normal)
[2023-06-09 13:32] LABS: UR Morphine/Opiate cutoff 300 Negative (Negative); Urine Amphetamines Negative (Negative); Urine Barbiturates Negative (Negative); Urine Benzodiazepines Negative (Negative); Urine Cocaine Negative (Negative); Urine MDMA Negative (Negative); Urine Methadone Negative (Negative); Urine Methamphetamines Negative (Negative); Urine Oxycodone Negative (Negative); Urine Phencyclidine Negative (Negative); Urine Tetrahydrocannabinol Positive (Negative); Urine Tricyclic Antidepressant Negative (Negative)
[2023-06-09 13:38] LABS: Thyroid Stimulating Hormone 0.923 uIU/mL (0.47-4.68)
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
--- NOTE | 2023-06-09 17:21 | CM.SWNOTE ---
ED RECEIVER/LABORER Note After RN contacted [employer] about duty to warn regarding patient's targeted HI, Corporal Decker arrives to ED. He states that he called the mother of patient's children and made contact with her and she is safe where she is. Monique reports concerns about patient being ARTHUR even though patient is voluntary and seeking treatment. RECEIVER/LABORER reviews this with ED provider, both RECEIVER/LABORER and ED provider agree that patient is appropriate for voluntary unless he tries to leave, then ARTHUR will be pursued for patient. RECEIVER/LABORER calls DCR to consult, ANNIA De Souza reviews patient and refers to RCW 71.05 stating that preference is for least restrictive tx and if patient is voluntary, pursue voluntary tx. ANNIA De Souza also recommends to dispatch DCR if patient states he wants to leave or attempts to leave and then seek ARTHUR. ANNIA De Souza states that patient has not been seen by them since 2018. ANNIA De Souza also recommends that [facility] follow up with patient upon d/c, RECEIVER/LABORER makes note of this in assessment. RECEIVER/LABORER calls [facility], it is reported that they have beds and can review patient. RECEIVER/LABORER faxes clinicals for review. RECEIVER/LABORER calls back to check on referral and it is stated that they do not have male beds and they are reviewing for tomorrow. RECEIVER/LABORER calls [facility], it is reported they are full. RECEIVER/LABORER calls [facility], it is reported that they have beds and can review patient. Chiki in intake calls and states that patient is accepted by [facility] with an arrival time of after 1999. RN-RN is (Ph. # [phone]). RECEIVER/LABORER calls A and schedules transport for 2039, RECEIVER/LABORER calls [facility] and informs them of transport time. RECEIVER/LABORER reviews this with patient and he indicates agreement and understanding. Plan: patient to transfer to [facility] for voluntary inpatient placement this evening via BLS this evening. ELVIS CagleSW
--- NOTE | 2023-06-09 18:14 | PC.NURSE ---
report to Chiki KWOK at [facility]
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
--- NOTE | 2023-06-09 21:25 | PC.NURSE ---
ANNIA Lorenzana has arrived for assessment.
[2023-06-09 21:28] VITALS: BP 140/93; PULSE 78; RESP 19; TEMP 37.2; O2SAT 96
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
[2023-06-09] MEDS: QUETIAPINE 25 MG TABLET 50 MG PO (23:09)
[2023-06-09] MEDS: FLUoxetine 20 MG CAPSULE 40 MG PO (23:09)
[2023-06-09] MEDS: DIVALPROEX ER 250 MG TAB 500 MG PO (23:09)
[2023-06-09] MEDS: risperiDONE 1 MG TABLET 2 MG PO (23:09)
[2023-06-10 07:36] VITALS: BP 131/68; PULSE 71; RESP 22; O2SAT 97
--- NOTE | 2023-06-10 07:36 | PC.NURSE ---
Pt resting on mattress on his right side. Pt was woken up to obtain vital signs. I asked patient about going to [facility], he states I already told them I will not go. Pt states he would not take medication to help calm him down before transportation. Dr. Yancey notified. New orders placed, see APR.
--- NOTE | 2023-06-10 07:52 | PC.NURSE ---
Pt rolled over to his back and moaned multiple times. I went in and asked patient if he is in pain, he states Yes, its my back. Pt endorses chronic back pain which he doesnt take any medication for usually. I asked if he would like some tylenol or ibuprofen, pt refused. I encouraged him to let us know if he changes his mind.
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
--- NOTE | 2023-06-10 09:00 | PC.NURSE ---
Due to patient's history at [facility], Dr. Yancey requests transportation be cancelled to [facility]. [facility] in department, transportation cancelled. [facility] dispatch was called to notify of cancellation. [facility] states to call back with patient info when we are ready for next transportation.
--- NOTE | 2023-06-10 09:10 | PC.NURSE ---
I called [facility] to update them that patient will not be transferred to their facility. SUNDAR Hancock notified.
[2023-06-10] MEDS: ACETAMINOPHEN 325 MG TABLET PO (10:56)
[2023-06-10] MEDS: IBUPROFEN 400 MG TABLET PO (10:57)
--- NOTE | 2023-06-10 14:49 | PC.NURSE ---
Call received from NANIA Donis, by this RN, stating that their fax machine is broken and he was hoping that original court documents were present at this ER. ANNIA Donis requests that the ER fax original court documentation to [place] as he is unable. He states that the paperwork is able to be unsealed in order to facilitate this. CERAMIC COATER MACHINE (Lisa) advised of this conversation. Original documents and fax number obtained from ANNIA Donis given to social work for faxing. Marcel KWOK advised.
--- NOTE | 2023-06-10 15:18 | CM.SWNOTE ---
Addendum entered by Lisa Jeffery ELECTRONIC DEVELOPMENT TECHNICIAN 06/10/23 19:21: DCR Joe called to confirm receipt of faxed [facility] Authorization of Secure Ambulance Transportation to/from [facility] form with correct pt information and signed DCR Attestation portion. ELECTRONIC DEVELOPMENT TECHNICIAN confirmed receipt of signed form and forwarded to [facility] for safe, compliant transport to [facility]. LisaMAXIMILIANO Chowdhury Addendum entered by Lisa Moralez JEANE Jeffery 06/10/23 17:36: ELECTRONIC DEVELOPMENT TECHNICIAN spoke with Lucas MILNER, updated on acceptance to [facility]. Discussed previous instructions to unseal ARTHUR petition documentation. Per DCR, pt notified this ELECTRONIC DEVELOPMENT TECHNICIAN to reseal court documents in a new envelope to be transferred with pt. Plan: [facility] ETA 1720 for transport to [facility]. Lisa JefferyMAXIMILIANO Addendum entered by Lisa Jeffery, ELECTRONIC DEVELOPMENT TECHNICIAN 06/10/23 15:42: Per Gus at [facility], pt is being accepted by [facility] ETA anytime transport is available, RN to RN report (ph#[phone]) at [address]. Plan: Pending [facility] transfer coordination. Original Note: ED ELECTRONIC DEVELOPMENT TECHNICIAN Note: ELECTRONIC DEVELOPMENT TECHNICIAN assuming pt for continued coordination for ARTHUR placement. Pt was accepted at [facility] last night but cancelled due to pt's refusal to be transferred voluntarily and pt's detainment overnight. 1120: ELECTRONIC DEVELOPMENT TECHNICIAN called [facility] to inquire about pt's transfer packet, it was reported that packet is still under review. 1300: ELECTRONIC DEVELOPMENT TECHNICIAN called ANNIA, Lucas Donis (ph#[phone]), to inquire about forwarding ARTHUR paperwork. DCR waiting to hear from [facility] to forward information when necessary. ELECTRONIC DEVELOPMENT TECHNICIAN spoke with Rell at [facility] Intake and was notified that pt is being pre-accepted pending ARTHUR paperwork from DCR and information from RN. RNMarcel, spoke to Rell at [facility] Intake. 1500: ELECTRONIC DEVELOPMENT TECHNICIAN unsealed Original court documents per Lucas MILNER, due to [employer] outage. ELECTRONIC DEVELOPMENT TECHNICIAN faxed documents to [facility] (fax#[phone]). Fax confirmation obtained. Plan: Pending acceptance at [facility], ELECTRONIC DEVELOPMENT TECHNICIAN following for coordination of transfer. MAXIMILIANO Joshua
--- NOTE | 2023-06-10 15:21 | PC.NURSE ---
Call received from ANNIA Donis asking if this ER still had original court documents. ANNIA Donis states that his fax machine is not working and is requesting that original court documents be sent from this ER to [facility]. ANNIA Donis states that it is okay for the court documents to be unsealed in order to facilitate this. JEANE Gonzalez and Marcel KWOK advised. Fax number received from DCR and Court documents given to JEANE.
--- NOTE | 2023-06-10 16:21 | PC.NURSE ---
Pt informed of being accepted to [facility]. Pt willing to sign [employer] form for transfer. Pt reports his back still hurts, declined wanting any medication for back pain.
--- NOTE | 2023-06-10 16:55 | PC.NURSE ---
Pt report called prior to D/C as requested. Mya, intake at [facility] received report.
[2023-06-10 17:00] VITALS: BP 137/78; PULSE 73; RESP 24; TEMP 36.7; O2SAT 97
--- NOTE | 2023-06-10 18:20 | PC.NURSE ---
Phone message left for Lucas MILNER regarding incomplete DCR paperwork. # [phone] with request to return phone call. PROJECT MANAGEMENT PROFESSIONAL contacting [facility] to establish contact with DCR.
[2023-06-11 04:37] LABS: Valproic Acid (Depakene) Total 20 ug/mL (50-100)
== END 2023-06-10 19:05 | disposition short-term general hospital (02) ==
PROVIDERS: Emergency Medicine; Emergency Provider Emergency Medicine
DX: F31.9 Bipolar disorder, unspecified (principal)
CPT/HCPCS: 36415; 80053; 80164; 80305; 80320; 80329; 81003; 84439; 84443; 85025; 87635; 99284; G0480

== ENCOUNTER 2023-10-13 15:07 | Emergency (ER) | payer MEDICARE, MEDICAID, SELFPAY ==
[2023-10-13] VITALS (9 sets, daily range): BP systolic 120–138; BP diastolic 59–79; PULSE 78–112; RESP 13–27; TEMP 36.9; O2SAT 95–99; BMI 35.6
--- NOTE | 2023-10-13 15:17 | DI.RAD.S_ITS ---
PROCEDURE: XR CHEST 1V INDICATIONS: suspected sepsis TECHNIQUE: One view of the chest was acquired. COMPARISON: None. FINDINGS: Surgical changes and devices: None. Lungs and pleura: Lungs are clear. No pleural effusions or pneumothorax. Mediastinum: Mediastinal contours appear normal. Heart size is normal. Bones and chest wall: No suspicious bony lesions. Overlying soft tissues appear unremarkable. IMPRESSION: No acute cardiopulmonary abnormality is seen. Dictated by: Ming Colorado M.D. on 10/13/2023 at 15:54 Approved by: Ming Colorado M.D. on 10/13/2023 at 15:54
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
[2023-10-13] MEDS: SODIUM CHLORIDE 0.9% 1,000 ML 1000 ML IV (15:43)
[2023-10-13 15:48] LABS: Add Manual Diff / Slide Review NO; Basophils Absolute Auto 100 /uL (0-100); Basophils Percent Auto 0.5 % (0-2); Eosinophils Absolute Auto 100 /uL (0-450); Eosinophils Percent Auto 0.8 % (2-4); Hematocrit 39.7 % (41-53); Hemoglobin 13.4 g/dL (13.5-17.5); Lymphocytes Absolute Auto 2600 /uL (1100-4500); Lymphocytes Percent Auto 22.2 % (25-40); Mean Corpuscular HGB Conc 33.8 % (30-36); Mean Corpuscular Hemoglobin 31.1 PG (26-34); Mean Corpuscular Volume 91.9 fL (80-100); Monocytes Absolute Auto 700 /uL (0-900); Monocytes Percent Auto 5.6 % (3-14); Neutrophils Absolute Auto 8300 /uL (1500-7000); Neutrophils Percent Auto 70.9 % (50-75); Platelet Count 303 X10^3/uL (150-400); Red Blood Cell Count 4.33 X10^6/uL (4.5-5.9); Red Cell Distribution Width 14.2 % (11.6-14.8); White Blood Cell Count 11.6 X10^3/uL (4.5-11.0)
[2023-10-13 15:53] LABS: INR 1.3 (0.9-1.3); Prothrombin Time 14.4 SECONDS (9.4-12.5)
[2023-10-13 15:55] LABS: PTT Partial Thromboplastin Tim 30 SECONDS (25.1-36.5)
[2023-10-13 15:56] LABS: Lactate (Lactic Acid) 2.3 mmol/L (0.7-2.1)
[2023-10-13 15:58] LABS: Alanine Aminotransferase 35 IU/L (<50); Albumin 3.5 g/dL (3.5-5.0); Alkaline Phosphatase 96 U/L (38-126); Aspartate Aminotransferase 29 IU/L (17-59); BUN Creatinine Ratio 14.7 (6-22); Bilirubin Total 0.6 mg/dL (0.2-1.3); Blood Urea Nitrogen 10 mg/dL (9-20); Calcium 8.8 mg/dL (8.4-10.2); Carbon Dioxide 22 mmol/L (22-32); Chloride 106 mmol/L (98-107); Estimated Glomerular Filt Rate > 60 mL/min (>60); Globulin 3.6 g/dL (1.7-4.1); Glucose 112 mg/dL (70-100); HEMOLYSIS 19 (0-50); Lipase 43 U/L (23-300); Potassium 3.4 mmol/L (3.4-5.1); Sodium 136 mmol/L (137-145); Total Protein 7.1 g/dL (6.3-8.2)
[2023-10-13 16:14] LABS: Procalcitonin 0.057 ng/mL (<0.5)
[2023-10-13 16:22] LABS: NT-proBNP (BNP-Adult 18+) 447 pg/mL (<125)
[2023-10-13] MEDS: ALBUTEROL HFA PREPACK 1 BOX MISC (16:23)
[2023-10-13] MEDS: ALBUTEROL/IPRATROPIUM 3 ML AMPUL INH (16:23)
[2023-10-13 17:17] LABS: Reflexed Lactate in 2 Hours Y
[2023-10-13 18:25] LABS: Influenza A - CEPHEID Flu A NEGATIVE (NEGATIVE); Influenza B - CEPHEID Flu B NEGATIVE (NEGATIVE); Respiratory Syncytial Virus Negative (Negative)
--- NOTE | 2023-10-13 18:25 | CM.SWNOTE ---
Addendum entered by JEANE Burns 10/13/23 19:30: At 1915: Patient requested to speak with ED ENGINE SPECIALIST. ED ENGINE SPECIALIST entered room, introduced self and role. Pt stated he needed assistance with obtaining clothing and shoes, case management with housing. It is noted that patient has a women's slipper and a fishing boot at bedside. Patient explained he has income from [employer] every month but won't have funds until 10/21. Currently, patient reports he is houseless but is staying with a friend at the [facility] until he gets his SSI check where he plans to rent a motel room for 2 weeks. ED ENGINE SPECIALIST provided patient with clothing resources in the community as well as churches who will be hosting meals this week (highlighted). Patient was also provided with five [employer] bus passes for use. Patient is appreciative. Patient agreed to plans of discharging back to community and obtaining prescriptions from [facility] after discharge. MAXIMILIANO Joshua Original Note: ED ENGINE SPECIALIST Note: Patient is a 48yo male, currently houseless with chcf (friend's apartment), recently seen at [facility] in [place]. Patient has a previous medical history of schizoaffective disorder and has not been compliant with prescription of Depakote, Prozac, and Risperidone. Reviewed EMR and [facility] medical, patient was only seen at [facility] on 10/11/2023. Patient was last at [facility] on 06/09/2023 for a mental health episode where he was transferred to [facility] for involuntary treatment. ED ENGINE SPECIALIST was consulted due to patient screening positive for social questions during triage (houseless, food insecurity). Patient was sleeping majority of this presentation, ED ENGINE SPECIALIST attempted to meet with patient twice and he was sound asleep. Plan: Patient has been cleared for discharge and will have psychiatric medications refilled at [facility]. ED ENGINE SPECIALIST on stand by for any resources needed at discharge. MAXIMILIANO Joshua
[2023-10-13 18:36] LABS: COVID-19 CEPHEID 4-PLEX PCR Negative (Negative)
--- NOTE | 2023-10-13 19:08 | PC.NURSE ---
pt refused another lactate level.
[2023-10-13 19:14] LABS: UR Morphine/Opiate cutoff 300 Negative (Negative); Ur Creatinine Normal (Normal); Ur Specific Gravity Normal (Normal); Urine Cocaine Negative (Negative); Urine Methamphetamines Positive (Negative); Urine Tetrahydrocannabinol Positive (Negative); Urine pH Normal (Normal)
[2023-10-13 19:15] LABS: Urine Amphetamines Negative (Negative); Urine Barbiturates Negative (Negative); Urine Benzodiazepines Negative (Negative); Urine MDMA Negative (Negative); Urine Methadone Negative (Negative); Urine Oxycodone Negative (Negative); Urine Phencyclidine Negative (Negative); Urine Tricyclic Antidepressant Negative (Negative)
[2023-10-13] MEDS: risperiDONE 1 MG TABLET 2 MG PO (20:34)
[2023-10-13] MEDS: DIVALPROEX ER 250 MG TAB 500 MG PO (20:34)
[2023-10-13] MEDS: FLUoxetine 10 MG CAPSULE 40 MG PO (20:35)
== END 2023-10-13 20:43 | disposition home or self-care (01) ==
PROVIDERS: Emergency Provider Emergency Medicine
DX: R06.2 Wheezing (principal); R00.0 Tachycardia, unspecified; F25.9 Schizoaffective disorder, unspecified; Z11.52 Encounter for screening for COVID-19
CPT/HCPCS: 0241U; 36415; 71045; 80053; 80305; 81003; 83605; 83690; 83880; 84145; 85025; 85610; 85730; 87040; 94640; 96360; 99284

== ENCOUNTER 2023-11-01 10:47 | Emergency (ER) | payer MEDICARE, MEDICAID, SELFPAY ==
--- NOTE | 2023-11-01 10:59 | PC.NURSE ---
called pt from [facility]. Per registration pt walked outside.
[2023-11-01 11:10] VITALS: BP 124/78; PULSE 84; RESP 16; TEMP 36.6; O2SAT 96; BMI 36.9
[2023-11-01 11:38] VITALS: BP 121/72; PULSE 74; RESP 14; O2SAT 95
--- NOTE | 2023-11-01 11:45 | ED_ITS ---
HPI - Wound/Laceration <Charline Saeed PA-C - Last Filed: 11/01/23 13:26> General Chief Complaint: Wound/Laceration Stated Complaint: animal bite, left foot Time Seen by Provider: 11/01/23 11:34 History of Present Illness HPI narrative: Patient is a very pleasant 48-year-old male that presents to the emergency room department today complaining of left palmar foot pain. Patient has a history of a callus on the bottom of his left foot, however he presents today now with increasing discomfort pain erythema and infected blister that is causing him a lot of discomfort. Patient attempted to work today, however was having a lot of pain his employer sent him into the emergency department to be evaluated. This is the only complaint he currently has. Related Data Previous Rx's Medication Instructions Recorded divalproex 500 mg tablet,delayed 500 mg PO BEDTIME #60 tabs 05/19/23 release (Depakote) doxycycline hyclate 100 mg capsule 100 mg PO BID #20 caps 05/19/23 fluoxetine 40 mg capsule (Prozac) 40 mg PO DAILY #60 caps 05/19/23 risperidone 2 mg tablet 2 mg PO BEDTIME #60 tabs 05/19/23 divalproex 500 mg tablet,extended 500 mg PO DAILY #30 tabs 10/13/23 release 24 hr (Depakote ER) fluoxetine 40 mg capsule (Prozac) 40 mg PO DAILY #30 caps 10/13/23 risperidone 2 mg tablet 2 mg PO DAILY #30 tabs 10/13/23 acetaminophen 500 mg tablet 500 mg PO QID PRN pain #30 tabs 11/01/23 (Acetaminophen Extra Strength) cephalexin 500 mg capsule 500 mg PO Q6H 10 days #40 caps 11/01/23 Allergies Allergy/AdvReac Type Severity Reaction Status Date / Time No Known Drug Allergies Allergy Verified 10/13/23 15:09 Review of Systems <Charline Saeed PA-C - Last Filed: 11/01/23 13:26> Review of Systems Narrative: Negative except as above Musculoskeletal Comments: Infected blister on the bottom of the left foot under the base of his left great toe Patient History <Charline Saeed PA-C - Last Filed: 11/01/23 13:26> Medical History Schizoaffective disorder Opioid use disorder Cervical stenosis of spine Cervical vertebral fracture Hyperlipidemia Hypertension Bipolar 1 disorder Coronary artery disease Social History Smoking Status: Current every day smoker Smoking Status: Current every day smoker tobacco type: cigarettes alcohol intake frequency: 0-2 drinks per day Substance Use Type: marijuana and methamphetamine Exam <Charline Saeed PA-C - Last Filed: 11/01/23 13:26> Initial Vital Signs Initial Vital Signs: Vital Signs Temperature 97.8 F 11/01/23 11:10 Pulse Rate 84 11/01/23 11:10 Respiratory Rate 16 11/01/23 11:10 Blood Pressure 124/78 11/01/23 11:10 Pulse Oximetry 96 11/01/23 11:10 Oxygen Delivery Method Room Air 11/01/23 11:10 Reviewed Const Other: Pleasant male height weight proportionate, mildly disheveled appearance. However he is polite interactive. Able to explain his issue and physical complaint. Eyes Other: Pupils are PERRLA, EOMs are intact Skin Other: The left foot is examined. Has some erythema on the volar aspect of the left foot right underneath the left great toe with what appears to be infected blister. He has redness and erythema, and infected blister that appears to have serosanguineous fluid as well as pus. He then has dry crusty tissue around the area of cellulitis and in the area of an infected blister. Extrem Other: Left lower extremity cap refills are preserved. Pulses are present. Patient has discomfort and pain on the volar aspect of the left foot, area of erythema, and infected blister is noted. With serosanguineous fluid and pus. <Jocelynn Baird DO - Last Filed: 11/02/23 08:05> Initial Vital Signs Initial Vital Signs: Vital Signs Temperature 97.8 F 11/01/23 11:10 Pulse Rate 84 11/01/23 11:10 Respiratory Rate 16 11/01/23 11:10 Blood Pressure 124/78 11/01/23 11:10 Pulse Oximetry 96 11/01/23 11:10 Oxygen Delivery Method Room Air 11/01/23 11:10 Procedures <Charline Saeed PA-C - Last Filed: 11/01/23 13:26> Abscess I/D I&D #1: Time of procedure: 12:00 Site: foot (Left volar aspect underneath the left great toe) Local Anesthetic: other anesthetic (None) Technique: incised with #11 blade Amount of fluid expressed (mL): 1 Complications: other (None patient tolerated the procedure well) Course <Charline Saeed PA-C - Last Filed: 11/01/23 13:26> Orders Ordered: Discontinued Medications Ceftriaxone Sodium (Ceftriaxone 2,000 Mg Vial) 1,000 mg IM NOW ONE Stop: 11/01/23 11:55 Last Admin: 11/01/23 12:46 Dose: 1,000 mg Documented By: LYN Lidocaine HCl (Lidocaine 1% (Pf) 5 Ml) 4.2 ml INJ NOW ONE Stop: 11/01/23 11:55 Vital Signs Vital signs: Vital Signs - 8 hr 11/01/23 11:10 11/01/23 11:38 11/01/23 13:21 Temperature 97.8 F Pulse Rate 84 74 69 Respiratory Rate 16 14 18 Blood Pressure 124/78 121/72 130/60 Pulse Oximetry 96 95 99 Oxygen Delivery Method Room Air Room Air Room Air <Jocelynn Baird DO - Last Filed: 11/02/23 08:05> Orders Ordered: Discontinued Medications Ceftriaxone Sodium (Ceftriaxone 2,000 Mg Vial) 1,000 mg IM NOW ONE Stop: 11/01/23 11:55 Last Admin: 11/01/23 12:46 Dose: 1,000 mg Documented By: LYN Lidocaine HCl (Lidocaine 1% (Pf) 5 Ml) 4.2 ml INJ NOW ONE Stop: 11/01/23 11:55 Vital Signs Vital signs: Vital Signs - 8 hr 11/01/23 11:10 11/01/23 11:38 11/01/23 13:21 Temperature 97.8 F Pulse Rate 84 74 69 Respiratory Rate 16 14 18 Blood Pressure 124/78 121/72 130/60 Pulse Oximetry 96 95 99 Oxygen Delivery Method Room Air Room Air Room Air MDM - Wound/Laceration <Charline Saeed PA-C - Last Filed: 11/01/23 13:26> MDM Narrative Medical decision making narrative: Pleasant 48-year-old male presents to the emergency department with left volar foot pain, signs and symptoms of cellulitis, infected blister, and small abscess. I and D as above Dressing applied after I and D 1 g of IM Rocephin Wound care education Prescription sent to the pharmacy Supportive therapy education Differential diagnosis; cellulitis, foot abscess, no concerns for osteo, Discharge Plan Departure Patient Disposition: Home Clinical Impression: Cellulitis and abscess of foot, Abscess Instructions: DI for Wound Infection Activity Restrictions/Additional Instructions: Please buy a large container of just plain table salt does not need to be anything fancy. At the hotel put a little bit of hot warm water and the bottom of the tub and then put some salt in it sit on the toilet and rest her foot in warm water and salt this will help the infection. Please then quill picking machine operator the prescriptions that I sent to the pharmacy and take the medications as prescr ibed. Also please quill picking machine operator a box of Band-Aids they do not have to be anything fancy. When at home please elevate the foot as much as tolerated. Return to the emergency department as needed. Prescriptions: New cephalexin 500 mg capsule 500 mg PO Q6H 10 Days Qty: 40 0RF acetaminophen [Acetaminophen Extra Strength] 500 mg tablet 500 mg PO QID PRN (Reason: pain) Qty: 30 0RF No Action doxycycline hyclate 100 mg capsule 100 mg PO BID Qty: 20 0RF divalproex [Depakote] 500 mg tablet,delayed release (DR/EC) 500 mg PO BEDTIME Qty: 60 0RF fluoxetine [Prozac] 40 mg capsule 40 mg PO DAILY Qty: 60 0RF risperidone 2 mg tablet 2 mg PO BEDTIME Qty: 60 0RF fluoxetine [Prozac] 40 mg capsule 40 mg PO DAILY Qty: 30 0RF divalproex [Depakote ER] 500 mg tablet extended release 24 hr 500 mg PO DAILY Qty: 30 0RF risperidone 2 mg tablet 2 mg PO DAILY Qty: 30 0RF Referrals: Miscellaneous,Doctor, MD [Primary Care Provider] - Stand Alone Forms: Patient Portal/API ED Sign-out <Jocelynn Baird DO - Last Filed: 11/02/23 08:05> Cosign ED Attending Georgiature Attestation: I was available for consultation.
[2023-11-01] MEDS: cefTRIAXone 2,000 MG VIAL 1000 MG IM (12:46)
[2023-11-01 13:21] VITALS: BP 130/60; PULSE 69; RESP 18; O2SAT 99
== END 2023-11-01 13:22 | disposition home or self-care (01) ==
PROVIDERS: Emergency Provider Physician Assistant
DX: L03.116 Cellulitis of left lower limb (principal); L02.612 Cutaneous abscess of left foot
CPT/HCPCS: 10060; 96372; 99283; J0696

== ENCOUNTER 2023-11-17 19:39 | Emergency (ER) | payer OTHER, MEDICAID, SELFPAY ==
[2023-11-17 19:45] VITALS: BP 126/72; PULSE 82; RESP 20; TEMP 37; O2SAT 100; BMI 35.9
== END 2023-11-17 20:25 | disposition left against medical advice (07) ==
PROVIDERS: Emergency Provider Emergency Medicine
CPT/HCPCS: 99281